=== PATIENT | female | born 1945 | race Caucasian/White ===

== ENCOUNTER 2019-03-09 15:36 | Emergency (ER) | payer MEDICARE ==
--- OUTSIDE RECORDS SUMMARY | 2019-03-09 15:41 | XMS REPORT | Continuity of Care Document ---
:1945 External Reference #:[id number] Author Name Cuong Bullock Care Team Providers Name Role Phone Breanne Rhoades RPA Primary Care Physician Unavailable Payers Date Identification Numbers Payment Provider Subscriber Policy Number: [id number] Medicare Blue Ppo Romelia Leger PayID: [id number] [address] [address] [place] [address] Problems Active Problems Provider Date Vulvodynia Breanne Wellington, PA Onset: 01/23/2019 Congenital anomaly of the kidney Breanne Rhoades, PA Onset: 01/23/2019 Note: partially duplicated collection system, right side Hyperlipidemia Breanne Wellington, PA Onset: 01/23/2019 Essential hypertension Breanne Rhoades, PA Onset: 01/23/2019 Atrial tachycardia Breanne Rhoades, PA Onset: 01/23/2019 Note: ablation, 1999 Paroxysmal atrial fibrillation Breanne Rhoades, PA Onset: 01/23/2019 Note: 2012, 2017...ablation Cervical arthritis Breanne Wellington, PA Onset: 01/23/2019 Note: mild Patellar tendonitis Breanne Carrasquilloing, PA Onset: 01/23/2019 Colitis Breanne Wellington, PA Onset: 01/23/2019 Note: Lymphocytic , bx 2017 Left bundle branch block Breanne Wellington, PA Onset: 02/03/2019 Note: intermittent, 2018 Family History Date Family Member(s) Observation Comments Father Heart Disease Mother Congestive Heart Failure (CHF) First Brother Thyroid CA Social History Type Date Description Comments Sex Unknown Marital Status Lives With Oscar Leger Diet Patient is on a low sodium Follows no dietary diet dietary restriction. Lives in [place] 6 months per year Occupation Retired ETOH Use Current Alcohol Use Socially Tobacco Use Start: Unknown Patient has never smoked Smoking Status Reviewed: 02/24/19 Patient has never smoked Allergies, Adverse Reactions, Alerts Active Allergies Reaction Severity Comments Date Zetia 01/23/2019 Rofecoxib 01/23/2019 Hydromorphone 01/23/2019 Monopril 01/23/2019 Cephalexin 01/23/2019 Nitrostat Passed out Severe 01/23/2019 Cipro avoid with Budesonides&Quinolo 01/23/2019 Medications Active Medications SIG Qnty Indications Ordering Date Provider Amlodipine Besylate 1 by mouth every 30tabs Jacinot 02/24/2019 2.5mg day MD Robles Tablets Vitamin B12 2500 mg twice a Jacinto 02/24/2019 week. MD Robles Hydroxyzine HCL 1-2 tabs by 60tabs G47.00 Jacinto 02/24/2019 25mg mouth at bedtime MD Robles Tablets as needed Spironolactone 1 by mouth every 30tabs I10 Jacinto 02/24/2019 25mg day MD Robles Tablets Vitamin D3 High 1 by mouth every 60caps Jacinto 01/23/2019 Potency day MD Robles 1000Unit Capsules Pravastatin Sodium take one tablet 30tabs Jacinto 01/23/2019 40mg by mouth every MD Robles Tablets evening Estradiol 0.5gram 42.500gm Jacinto 01/23/2019 0.1mg/GM Cream vaginally MD Robles 2x/week Multi Vitamin 1 by mouth every 30tabs Jacinto 01/23/2019 Tablets day MD Robles Buspirone HCL 1 by mouth three Jacinto 01/23/2019 5mg Tablets times a day/prn MD Robles Metoprolol Succinate 1 by mouth every 90tabs Jacinto 01/23/2019 ER night MD Robles 100mg Tablets ER 24HR Omeprazole 1 by mouth every 30caps Jacinto 01/23/2019 20mg Capsules day MD Robles DR Furosemide 1 by mouth every 30tabs Jacinto 01/23/2019 20mg Tablets day as needed MD Robles Eliquis 1 tab by mouth Unknown 08/22/2018 2.5mg Tablets twice a day Integra F 1 cap by mouth Unknown 125-1mg every day Capsules History Medications Eliquis 1 by mouth 60tabs Jacinto Arboleda MD 01/23/2019 - 5mg Tablets twice a day 01/24/2019 Vitamin B12 1 by mouth 90tabs Jacinto Arboleda MD 01/23/2019 - 100mcg every day 02/24/2019 Tablets Ferritin 65mg 1 tab qd Jacinto Arboleda MD 01/23/2019 - 01/24/2019 Amlodipine Besylate 1 by mouth Unknown 08/22/2018 - every Am 02/24/2019 5mg Tablets Immunizations CPT Code Status Date Vaccine Lot # [id number] Given 06/03/2018 Influenza Virus Vaccine, Quadrivalent, Split, Preservative Free 99190 Given 06/14/2015 Pneumococcal Conjugate Vaccine 13 Valent For Intramuscular Use 05550 Given 07/21/2012 Zoster(Zostavax) 62879 Given 07/13/2008 Pneumonia Vaccine 57862 Given 06/28/2001 Pneumonia Vaccine Vital Signs Date Vital Result Comment 02/24/2019 9:17am Height 68.25 inches 5'8.25" Weight 219.38 lb Heart Rate 62 /min BP Systolic Sitting 140 mmHg BP Diastolic Sitting 76 mmHg O2 % BldC Oximetry 97 % BMI (Body Mass Index) 33.1 kg/m2 01/23/2019 2:47pm Height 68.25 inches 5'8.25" Weight 215.44 lb Heart Rate 84 /min BP Systolic Sitting 136 mmHg BP Diastolic Sitting 72 mmHg O2 % BldC Oximetry 94 % BMI (Body Mass Index) 32.5 kg/m2 Results Test Date Facility Test Result H/L Range Note CBC Auto Diff 02/17/2019 [facility] White Blood 7.4 10^3/uL N 3.5-10.[address] [place] [address] [phone] Red Blood Count 3.94 10^6/uL N 3.70-4.87 Hemoglobin 11.7 g/dL Low 12.0-16.0 Hematocrit 36 % N 35-47 Mean Corpuscular Volume 91 fL N 80-97 Mean Corpuscular Hemoglobin 30 pg N 27-31 Mean Corpuscular HGB Conc 33 g/dL N 31-36 Red Cell Distribution Width 15 % N 10-15 Platelet Count 248 10^3/uL N 150-450 Mean Platelet Volume 10.4 fL N 7.4-10.4 Abs Neutrophils 5.0 10^3/uL N 1.5-7.7 Abs Lymphocytes 1.8 10^3/uL N 1.0-4.8 Abs Monocytes 0.5 10^3/uL N 0-0.8 Abs Eosinophils 0.1 10^3/uL N 0-0.6 Abs Basophils 0.0 10^3/uL N 0-0.2 Abs Nucleated RBC 0.0 10^3/uL Granulocyte % 67.5 % Lymphocyte % 23.9 % Monocyte % 7.1 % Eosinophil % 1.3 % Basophil % 0.2 % Nucleated Red Blood Cells % 0.0 Iron & Iron Binding 02/17/2019 [facility] Iron 62 g/dL N 50- 212 [address] [place] [address] [phone] Unsaturated Iron Binding < 304 g/dL Total Iron Binding Capacity 319 g/dL N 250-450 Transferrin 228 mg/dL N 203-362 % Iron Saturation 19 % N 15-55 Laboratory test 02/17/2019 [facility] Ferritin 191.5 ng/mL N 11-307 finding [address] [place] [address] [phone] Renal Function 02/17/2019 [facility] Albumin 4.0 g/dL N 3.2- 5.2 Panel [address] [place] [address] [phone] Calcium 9.4 mg/dL N 8.6-10.3 Co2 Carbon Dioxide 20 mmol/L Low 22-32 Chloride 115 mmol/L High 101-111 Glucose 100 mg/dL N 70-100 Phosphorus 3.6 mg/dL N 2.5-5.0 Potassium 4.4 mmol/L N 3.5-5.0 Sodium 142 mmol/L N 135-145 Blood Urea Nitrogen BUN 26 mg/dL High 6-24 Creatinine 02/17/2019 [facility] Creatinine 1.07 mg/dL High 0.51-0.[address] [place] [address] [phone] Egfr Non- 50.6 >60 Egfr 61.2 >60 1 Urinalysis Profile 02/13/2019 [facility] Urine Color Yellow 2 [address] [place] [address] [phone] Urine Appearance Clear Urine Specific [place] 1.006 Low 1.010-1.030 Urine pH 6.0 N 5-9 Urine Urobilinogen Negative Negative Urine Ketones Negative Negative Urine Protein Negative Negative Urine Leukocytes Negative Negative Urine Blood Negative Negative Urine Nitrite Negative Negative Urine Bilirubin Negative Negative Urine Glucose Negative Negative Urine Culture And 02/13/2019 [facility] Urine Culture SEE RESULT [address] [place] [address] [phone] Comp Metabolic 01/21/2019 [facility] Sodium 143 mmol/L N 135- [address] [place] [address] [phone] Potassium 3.9 mmol/L N 3.5-5.0 Co2 Carbon Dioxide 19 mmol/L Low 22-32 Glucose 94 mg/dL N 70-100 Blood Urea Nitrogen 25 mg/dL High 6-24 Creatinine 1.19 mg/dL High 0.51-0.95 BUN/Creatinine Ratio 21.0 High 8-20 Calcium 9.8 mg/dL N 8.6-10.3 Total Protein 6.7 g/dL N 6.4-8.9 Albumin 4.3 g/dL N 3.2-5.2 Globulin 2.4 g/dL N 2-4 Albumin/Globulin Ratio 1.8 N 1-3 Total Bilirubin 0.50 mg/dL N 0.2-1.0 Alkaline Phosphatase 57 U/L N 34-104 Alt 16 U/L N 7-52 Ast 17 U/L N 13-39 Egfr Non- 44.7 >60 Egfr 54.1 >60 4 Chloride 116 mmol/L High 101-111 Anion Gap 8 mmol/L N 2-11 Lipid Profile 01/21/2019 [facility] Triglycerides 175 mg/dL 5 (Trig/Chol/HDL) [address] [place] [address] [phone] Cholesterol 162 mg/dL 6 HDL Cholesterol 52.6 mg/dL 7 LDL Cholesterol 74 mg/dL 8 CBC Auto Diff 01/21/2019 [facility] White Blood 7.1 10^3/uL N 3.5-10.[address] [place] [address] [phone] Red Blood Count 3.85 10^6/uL N 3.70-4.87 Hemoglobin 11.3 g/dL Low 12.0-16.0 Hematocrit 35 % N 35-47 Mean Corpuscular Volume 90 fL N 80-97 Mean Corpuscular Hemoglobin 30 pg N 27-31 Mean Corpuscular HGB Conc 33 g/dL N 31-36 Red Cell Distribution Width 15 % N 10.5-15 Platelet Count 293 10^3/uL N 150-450 Mean Platelet Volume 9.8 fL N 7.4-10.4 Abs Neutrophils 4.0 10^3/uL N 1.5-7.7 Abs Lymphocytes 2.4 10^3/uL N 1.0-4.8 Abs Monocytes 0.6 10^3/uL N 0-0.8 Abs Eosinophils 0.1 10^3/uL N 0-0.6 Abs Basophils 0.0 10^3/uL N 0-0.2 Abs Nucleated RBC 0.0 10^3/uL Granulocyte % 55.8 % Lymphocyte % 34.3 % Monocyte % 7.8 % Eosinophil % 1.8 % Basophil % 0.3 % Nucleated Red Blood Cells % 0.0 Laboratory test 01/21/2019 [facility] Vitamin D 41.6 ng/mL N 20-[address]) [place] [address] [phone] 1 Because ethnic data is not always readily available, this report includes an eGFR for both -Americans and non- Americans. The National Kidney Disease Education Program (NKDEP) does not endorse the use of the MDRD equation for patients that are not between the ages of 18 and 70, are , have extremes of body size, muscle mass, or nutritional status, or are non- or non-. According to the National Kidney Foundation, irrespective of diagnosis, the stage of the disease is based on the level of kidney function: Stage Description GFR(mL/min/1.73 m(2)) 1 Kidney damage with normal or decreased GFR 90 2 Kidney damage with mild decrease in GFR 60-89 3 Moderate decrease in GFR 30-59 4 Severe decrease in GFR 15-29 5 Kidney failure <15 (or dialysis) 2 [id number] 3 SEE RESULT BELOW Name: ROMELIA LEGER : [address]: Breanne MCCURDY Acct: [id number] Unit: [id number] AGE: 73 Location: [facility] Re02/13/19 SEX: F Status: REG REF SPEC: [id number] LUIS ALBERTO: 02/13/19-[address]: Breanne MCCURDY REQ: [id number] RECD: 02/13/19 STATUS: COMP _ SOURCE: URINE SPDESC: ORDERED: Urine Culture COMMENTS: [id number] Urine Source: Random Procedure Result Reported Site Urine Culture Final 02/14/19- 1647 ML No Growth (<1,000 CFU/mL) * ML - Main Lab . END OF REPORT DEPARTMENT OF PATHOLOGY, [address] [place] [address] Surjit Quigley M.D. Director [facility] # [id number] 4 Because ethnic data is not always readily available, this report includes an eGFR for both -Americans and non- Americans. The National Kidney Disease Education Program (NKDEP) does not endorse the use of the MDRD equation for patients that are not between the ages of 18 and 70, are , have extremes of body size, muscle mass, or nutritional status, or are non- or non-. According to the National Kidney Foundation, irrespective of diagnosis, the stage of the disease is based on the level of kidney function: Stage Description GFR(mL/min/1.73 m(2)) 1 Kidney damage with normal or decreased GFR 90 2 Kidney damage with mild decrease in GFR 60-89 3 Moderate decrease in GFR 30-59 4 Severe decrease in GFR 15-29 5 Kidney failure <15 (or dialysis) 5 Desirable: <150 Borderline High: 150-199 High: 200-499 Very High: >500 6 Desirable: <200 Borderline High: 200-239 High: >239 7 Low: <40 Desirable: 40-60 High: >60 8 Desirable: <100 Near Optimal: 100-129 Borderline High: 130-159 High: 160-189 Very High: >189 9 Total 25-Hydroxyvitamin D2 and D3 (25-OH-VitD) <10 ng/mL (severe deficiency) 10-19 ng/mL (mild to moderate deficiency) 20-50 ng/mL (optimum levels) 51-80 ng/mL (increased risk of hypercalciuria) >80 ng/mL (toxicity possible) Procedures Date Code Description Status 04/26/2018 [id number] Mammogram Completed 05/04/2017 [id number] Colonoscopy Completed 05/24/2013 16405 Treadmill Interp/Report Only Completed 05/24/2013 20536 Stress Test Supervsn W/Out I/R Completed 05/24/2013 19544 EKG, Interpretation Only Completed Encounters Type Date Location Provider Dx Diagnosis Office Visit 01/23/2019 [facility] Primary [facility] Breanne Rhoades, D50.9 Iron deficiency 2:30p KAZ anemia, unspecified N17.9 Acute kidney failure, unspecified I49.9 Cardiac arrhythmia, unspecified 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 Un[facility] Hospitalists 427.31 Atrial Fibrillation 272.2 Hyperlipidemia Mixed 785.1 Palpitations Office 05/24/2013 [place] Mariela S. 794.31 Electrocardiogram Visit 9:43a Cardiology Tamia Trinh (ECG) (EKG) Abnormal 786.50 Pain Chest Unspec 427.31 Atrial Fibrillation 401.1 Hypertension Benign Office Visit 05/24/2013 9:35a [facility] Mone 786.50 [facility],hugo Claros M.D. Unspec Hospitalists 785.1 Palpitations Plan of Treatment Future Appointment(s):05/27/2019 11:30 am - KAZ Saeed at [facility] Primary Care02/24/2019 - MARTY Saeed Essential (primary) hypertensionNew Medication:Spironolactone 25 mg - 1 by mouth every dayComments:Current medication(s): Amlodipine 2,5mg daily, Metoprolol ER 100mg daily Add...Follow up:05/20199159E04.0 Localized edemaNew Labs:Renal Function Panel, Ordered: CBC No Diff, Ordered: 02/24/19Comments:Current treatment: Furosemide 20mg as neededMay switch to as needed use as edema subsides with farrmyokdbradbW96.00 Insomnia, unspecifiedNew Medication:Hydroxyzine HCL 25 mg - 1-2 tabs by mouth at bedtime as needed
--- OUTSIDE RECORDS SUMMARY | 2019-03-09 15:42 | XMS REPORT | Continuity of Care Document ---
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 Breanne Rhoades RPAC Primary Care Physician Unavailable Payers Date Identification Numbers Payment Provider Subscriber Effective: 2017 Policy Number: [id number] [employer] Romelia Magdaleno PayID: [id number] [address] [address] [place] [address] Problems Active Problems Provider Date Atrophic vaginitis Breanne Rhoades RPAC Onset: 12/28/2011 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, (R) side Hyperlipidemia Breanne Rhoades RPAC Onset: 12/28/2011 Benign essential hypertension [facility]: 12/28/2011 Irritable bowel syndrome [facility] Onset: 12/28/2011 Atrial tachycardia [facility] Onset: 05/13/2015 Note: ablation 2000 Paroxysmal atrial fibrillation Breanne Rhoades RPAC Onset: 05/13/2015 Note: 2012,2017 Cervical arthritis [facility] Onset: 05/13/2015 Note: mild Colitis [facility] Onset: 05/25/2017 Note: lymphocytic, bx 2017 Urinary tract infectious disease [facility] Onset: 02/11/2018 Knee pain [facility] Onset: 02/11/2018 Patellar tendonitis Jonh Hernandez M.D. Onset: 03/14/2018 Resolved Problems Acute upper respiratory infection, Breanne Rhoades RPAC Onset: 01/15/2018 unspecified Resolved: 02/13/2018 Ulcerative stomatitis Breanne Rhoades RPAC Onset: 01/22/2018 Resolved: 02/13/2018 Family History Date Family Member(s) Observation Comments General Heart Attack Father Heart Disease Father due to [place] () Mother Heart Disease First Brother Heart Disease First Brother Cancer thyroid Second Brother Pancreatic Cancer Social History Type Date Description Comments Sex Unknown Lives With Oscar Magdaleno Diet Patient is on a low sodium diet Diet Patient follows no dietary restrictions Occupation Retired Work Status Retired Hand Dominance Right-handed Tobacco Use Start: Unknown Never Smoked Cigarettes ETOH Use Currently consumes alcohol socially Tobacco Use Start: Unknown End: Patient is a former smoker Recreational Drug Use Never Used Drugs Smoking Status Reviewed: 02/11/19 Patient is a former smoker Allergies, Adverse Reactions, Alerts Active Allergies Reaction Severity Comments Date Hydromorphone 05/24/2011 Amiodarone 04/11/2018 Zetia Diarrhea 05/24/2011 Cephalexin Vomiting 05/24/2011 Nitroglycerin Other (See Comments) 03/26/2018 Vioxx 05/24/2011 Monopril 05/24/2011 Ezetimibe Diarrhea 03/26/2018 Nitrostat HYPOTENSION Passed Out 05/05/2016 Cipro diarrhea Avoid With Budesonide 05/09/2018 Quinolones AVOID WITH BUDESONIDE 06/02/2018 Xarelto Robin 02/11/2019 Medications Active Medications SIG Qnty Indications Ordering Date Provider Integra F one daily Ajit Pedroza MD 02/11/2019 125-1mg Capsules Omeprazole Take 1 Capsule By 90caps Jona Hylton, 08/01/2018 20mg Mouth Every Day M.D. Capsules DR Furosemide 1 by mouth every day 90tabs R60.0 Jona Hylton, 06/03/2018 20mg as needed for M.D. Tablets foot/ankle swelling Buspirone HCL 1 tab by mouth twice 360tabs F41.9 Jona Hylton, 2014 5mg a day for anxiety as M.D. Tablets needed Multi-Day Vitamins 1 by mouth every day 300tabs Jona Hylton, 2012 M.DChristian Tablets Estrace insert 1 255mg Jona Hylton, 03/11/2012 0.1mg/GM applicatorful M.D. Cream vaginally twice a week Pravastatin Sodium Take 1 Tablet By 90tabs Jona Hylton, 03/11/2012 Mouth Every Day M.D. 40mg Tablets Vitamin D3 one cap q day Unknown 1000Unit Capsules Eliquis 1 tab by mouth twice Unknown 2.5mg daily Tablets Metoprolol 1 by mouth every day I49.3 Unknown Succinate ER 100mg Tablets ER 24HR Vitamin B-12 twice weekly Unknown 2500mcg Tablets Sub Amlodipine Besylate 1 by mouth every day Unknown 2.5mg Tablets History Medications Shingrix intramuscular dose, 1units Warner, 06/03/2018 - 50mcg Suspension Rec repeat in 2+ months Tamia Tenorio Unknown Ciprofloxacin HCL 1 tab by mouth 20tabs Warner, 05/07/2018 - 500mg Tablets twice a day Tamia Tenorio 05/18/2018 Omeprazole 1 by mouth every 90caps Warner, 04/11/2018 - 40mg Capsules DR lewis Tenorio M.D. 08/01/2018 Tramadol HCL 1 tablet every 4 30tabs Jonh Hernandez, 02/21/2018 - 50mg Tablets hours as needed for M.D. 04/22/2018 pain Amoxicillin 1 cap by mouth 30caps N39.0 Warner, 02/11/2018 - 500mg Capsules three times a day Tamia Tenorio 04/09/2018 Xarelto 1 tab by mouth at [facility], 01/16/2018 - 20mg Tablets largest meal. MD Bird Unknown Ipratropium [place] 2 sprays to each 30ml J06.9 Warner, 01/15/2018 - 0.03% nostril twice a day Tamia Tenorio 04/22/2018 Solution Amoxicillin 1 tab by mouth 20tabs J06.9 Hylton, 01/15/2018 - 875mg Tablets twice a day Tamia Tenorio 01/26/2018 Budesonide 3 caps every day, [place], 06/03/2017 - 3mg Caps DR Omar cintron as directed Rajesh JAY 01/15/2018 Sulfamethoxazole/Trimetho take one tablet by 20tabs Warner, 05/23/2017 - prim DS mouth twice a day Tamia Tenorio 06/07/2017 800-160mg Tablets with food Nitrofurantoin Monohyd 1 cap by mouth 14caps Warner, 05/10/2017 - Macro twice a day Tamia Tenorio Unknown 100mg Capsules Amoxicillin 1 cap by mouth 30caps Warner, 04/17/2017 - 500mg Capsules three times a day Tamia Tenorio 04/28/2017 Terbinafine HCL Take One Tablet By [place], 03/19/2017 - 250mg Tablets Mouth Every Day Alayna Raymundo RPAC Lamisil 1 tab by mouth 90tabs B35.1 Warner, 02/14/2017 - 250mg Tablets every day Tamia Tenorio Unknown Metoprolol Succinate ER 1 by mouth every 90tabs I49.3 Ajit Pedroza, 2016 - 25mg night 02/11/2019 Tablets ER 24HR Magnesium Oxide -MG one by mouth daily 30caps I49.3 Isaac, 02/13/2017 - Supplement Ernie Muse, Unknown 400mg Capsules [facility], [facility] Metoprolol Tartrate 1/2 tab by mouth 180tabs I49.3 Ajit Pedroza, 2016 - 25mg twice daily 02/13/2017 Tablets Multaq take one tablet by Page, 06/26/2016 - 400mg Tablets mouth twice a day MD Bird 06/12/2018 Eliquis 1 tab by mouth 180tabs Isaac, 05/30/2016 - 5mg Tablets twice a day Ernie Muse, 07/03/2016 Tamia, [facility] Omeprazole take 1 capsule by 90caps Warner, 05/12/2016 - 20mg Capsules DR lisa every day Tamia Tenorio 04/15/2018 Aspirin Ec Lo-Dose 1 by mouth every Ajit Pedroza, 05/05/2016 - 81mg Tablets day 05/30/2016 DR Chase 1 by mouth every 90tabs Ajit Pedroza, 05/05/2016 - 10mg Tablets day 07/03/2016 Esomeprazole Magnesium 1 by mouth twice a 90caps Garth Dalal 04/21/2016 - 40mg day E., DO 05/12/2016 Capsules Carsohailol 1 by mouth twice a 60tabs Garth Dalal 04/21/2016 - 12.5mg Tablets day E., DO 05/05/2016 Bactrim DS 1 tab by mouth Pepe, 04/17/2016 - 800-160mg Tablets twice a day Lj Garcia MD Unknown Fenofibrate Micronized 1 cap by mouth 30caps Garth Dalal 06/14/2015 - 130mg every day E., DO 04/21/2016 Capsules Amlodipine Besylate 1 by mouth every 90tabs Garth Dalal 05/27/2015 - 2.5mg day E., DO 04/21/2016 Tablets Hydrochlorothiazide 1 cap by mouth 90caps Garth Dalal 05/27/2015 - 12.5mg every day as needed E., DO 04/21/2016 Capsules lower ext edema Fenofibrate Micronized 1 cap by mouth 90caps Jose, 04/01/2014 - 134mg every day MD Nelly 06/14/2015 Capsules [place] 50 1 by mouth every 60caps Jose, 03/23/2014 - 1000mg Capsules day MD Nelly 02/22/2015 Ferrous Gluconate 1 by mouth every Jose, 03/23/2014 - 325(36Fe) mg day MD Nelly 02/22/2015 Tablets Ciprofloxacin HCL 1 by mouth twice a 14tabs Jose, 03/23/2014 - 500mg Tablets day MD Nelly 02/22/2015 Bisoprolol 1 tab by mouth 90tabs Jose, 09/10/2013 - Fumarate/Hydrochlorothiaz every day...05/18/15 MD Nelly 05/27/2015 pb taper with 1/2 tab 10-6.25mg Tablets q day for 5 days then stop Omeprazole 1 cap by mouth 90capnimo Garcia, 06/12/2013 - 40mg Capsules DR every day MD Nelly 04/21/2016 Aspirin Adult Low 2 tabs by mouth Jose 03/11/2012 - Strength every day MD Nelly 05/05/2016 81mg Tablets Furosemide 1 po qd prn, rare 90tabs Jose, 05/24/2011 - 20mg Tablets use MD Nelly 06/14/2015 Fenofibrate Micronized Take 1 Capsule By 90caps Warner, - 134mg Mouth Every Day Tamia Tenorio Unknown Capsules Budesonide 1 cap by mouth Rodger, - 3mg Caps Part every day Rajesh JAY Unknown Hydrochlorothiazide 1/2 - 1 tablet by 90tabs Warner, - 25mg mouth every day prn Tamia Tenorio 06/03/2018 Tablets Aspirin Adult Low Dose 2 by mouth every Unknown - 81mg day 01/22/2018 Tablets Vitamin B12 1 by mouth every Unknown - 500mg Tablets day Unknown Hydrochlorothiazide 1 by mouth every 90tabs Warner, - 12.5mg day Tamia Tenorio 01/15/2018 Tablets Cefuroxime Axetil Unknown - 250mg Tablets 05/13/2015 [place] 50 1 by mouth every 60caps Jose, - 1000mg Capsules day MD Nelly 05/13/2015 Ferrous Gluconate 1 by mouth every Jose, - 325(36Fe) mg day MD Nelly 05/13/2015 Tablets Ciprofloxacin HCL 1 by mouth twice a 14tabs Jose, - 500mg Tablets day MD Nelly 05/13/2015 Estrace Unknown - 0.1mg/GM Cream 05/13/2015 Nyamyc Unknown - [id number] Powder 05/13/2015 Sulfamethoxazole-Trimetho Unknown - prim 05/13/2015 400-80mg Tablets Cephalexin Unknown - 500mg Capsules 05/13/2015 Ciprofloxacin HCL Unknown - 500mg Tablets 05/13/2015 Bisoprolol Unknown - Fumarate/Hydrochlorothiaz 05/13/2015 pb 10-6.25mg Tablets Nitrofurantoin Monohyd Unknown - Macro 05/13/2015 100mg Capsules Fenofibrate Micronized Unknown - 134mg 05/13/2015 Capsules Osphena 1 tablet by mouth Unknown - 60mg Tablets once a day with 04/21/2016 food Medications Administered in Office Medication SIG Qnty Indications Ordering Provider Date Methylprednisolone acetate Dorothy Fraser, 02/13/2018 (Depomedrol) 80mg injection RPAC Injection Betamethasone Acetate & Sodium Dorothy Fraser, 03/27/2017 Phosphate 3 MG Of Each RPAC Injection Depo-Medrol 20mg Dorothy Fraser, 02/23/2015 Injection RPA Immunizations CPT Code Status Date Vaccine Reaction Lot # 42899 Given 06/03/2018 Influenza Virus Vaccine, Quadrivalent, 36 none [id number] Mos+, .5ML 38846 Given 05/21/2017 Influenza Virus Vaccine Quadrivalent Iiv4 NONE [id number] Split Preser Free Id Q2038 Given 05/29/2016 Influenza Vaccine (Fluzone) Age 3 And [id number] Older Q2038 Given 06/14/2015 Influenza Vaccine (Fluzone) Age 3 And [id number] Older 96497 Given 06/14/2015 Pneumococcal Conjugate Vaccine 13 Valent [id number] For Intramuscular Use 01190 Given 05/29/2014 flu vaccination 48315 Given 06/23/2013 flu vaccination 53813 Given 07/11/2012 Zoster Vaccine Live Injection 99116 Given 07/03/2012 Tdap injection 93932 Given 05/31/2012 flu vaccination 03463 Given 05/24/2011 flu vaccination 53472 Given 05/13/2010 flu vaccination 33418 Given 07/13/2008 Pneumovax Injection 70579 Given 06/28/2001 Pneumovax Injection 26274 Given 06/28/2001 flu vaccination Vital Signs Date Vital Result Comment 02/11/2019 9:17am BP Systolic Sitting Left Arm 120 mmHg BP Diastolic Sitting Left Arm 60 mmHg Heart Rate 70 /min Respiratory Rate 18 /min Height 67.99 inches 5'7.99" per records Weight 212.00 lb BMI (Body Mass Index) 32.2 kg/m2 BSA (Body Surface Area) 2.09 m2 [place] body weight in kilograms 63 kg O2 % BldC Oximetry 97 % 06/03/2018 12:53pm BP Systolic 144 mmHg BP Diastolic 76 mmHg Body Temperature 97.3 F Heart Rate 81 /min Respiratory Rate 18 /min Height 67.99 inches 5'7.99" per records Weight 227.25 lb BMI (Body Mass Index) 34.6 kg/m2 BSA (Body Surface Area) 2.16 m2 [place] body weight in kilograms 63 kg O2 % BldC Oximetry 98 % 05/14/2018 11:47am BP Systolic Sitting Left Arm 120 mmHg BP Diastolic Sitting Left Arm 65 mmHg Heart Rate 72 /min Respiratory Rate 16 /min Height 67.99 inches 5'7.99" per records Weight 226.00 lb BMI (Body Mass Index) 34.4 kg/m2 BSA (Body Surface Area) 2.15 m2 [place] body weight in kilograms 63 kg O2 % BldC Oximetry 98 % 04/22/2018 10:59am BP Systolic Sitting Left Arm 120 mmHg BP Diastolic Sitting Left Arm 62 mmHg Body Temperature 98.4 F Heart Rate 69 /min Respiratory Rate 18 /min Height 67.99 inches 5'7.99" per records Weight 227.00 lb BMI (Body Mass Index) 34.5 kg/m2 BSA (Body Surface Area) 2.16 m2 [place] body weight in kilograms 63 kg O2 % BldC Oximetry 98 % Ra 03/14/2018 1:02pm BP Systolic Sitting Left Arm 133 mmHg BP Diastolic Sitting Left Arm 78 mmHg Body Temperature 97.4 F Heart Rate 69 /min Respiratory Rate 18 /min Height 67.99 inches 5'7.99" per records Weight 228.00 lb BMI (Body Mass Index) 34.7 kg/m2 BSA (Body Surface Area) 2.16 m2 [place] body weight in kilograms 63 kg O2 % BldC Oximetry 98 % 02/21/2018 2:18pm BP Systolic Sitting Left Arm 132 mmHg BP Diastolic Sitting Left Arm 65 mmHg Body Temperature 98.5 F Heart Rate 71 /min Respiratory Rate 17 /min Height 67.99 inches 5'7.99" per records [place] body weight in kilograms 63 kg O2 % BldC Oximetry 99 % 02/13/2018 1:15pm BP Systolic Sitting Left Arm 117 mmHg BP Diastolic Sitting Left Arm 75 mmHg Body Temperature 98.0 F Heart Rate 62 /min Respiratory Rate 18 /min Height 67.99 inches 5'7.99" per records Weight 232.00 lb BMI (Body Mass Index) 35.3 kg/m2 BSA (Body Surface Area) 2.18 m2 [place] body weight in kilograms 63 kg O2 % BldC Oximetry 98 % 02/11/2018 2:35pm BP Systolic Sitting Right Arm 128 mmHg BP Diastolic Sitting Right Arm 68 mmHg Body Temperature 98.7 F Heart Rate 65 /min ra Respiratory Rate 18 /min Height 67.99 inches 5'7.99" Weight 232.00 lb BMI (Body Mass Index) 35.3 kg/m2 BSA (Body Surface Area) 2.18 m2 [place] body weight in kilograms 63 kg O2 % BldC Oximetry 98 % ra 02/06/2018 10:32am BP Systolic 112 mmHg BP Diastolic 64 mmHg Heart Rate 76 /min Height 67.99 inches 5'7.99" Weight 224.00 lb BMI (Body Mass Index) 34.06 kg/m2 02/04/2018 9:19am BP Systolic Sitting Left Arm 138 mmHg BP Diastolic Sitting Left Arm 78 mmHg Heart Rate 62 /min Respiratory Rate 18 /min Height 69 inches 5'9" Weight 230.00 lb BMI (Body Mass Index) 34.0 kg/m2 BSA (Body Surface Area) 2.19 m2 [place] body weight in kilograms 66 kg 01/22/2018 10:07am BP Systolic Sitting Right Arm 118 mmHg BP Diastolic Sitting Right Arm 72 mmHg Heart Rate 73 /min reg Respiratory Rate 24 /min Height 69 inches 5'9" Weight 228.00 lb BMI (Body Mass Index) 33.7 kg/m2 BSA (Body Surface Area) 2.18 m2 [place] body weight in kilograms 66 kg O2 % BldC Oximetry 98 % ra 01/15/2018 10:08am BP Systolic Sitting Right Arm 140 mmHg BP Diastolic Sitting Right Arm 72 mmHg Body Temperature 99.5 F Heart Rate 71 /min reg Respiratory Rate 24 /min Height 69 inches 5'9" Weight 228.00 lb BMI (Body Mass Index) 33.7 kg/m2 BSA (Body Surface Area) 2.18 m2 [place] body weight in kilograms 66 kg O2 % BldC Oximetry 97 % 05/23/2017 9:44am BP Systolic Sitting Left Arm 104 mmHg BP Diastolic Sitting Left Arm 77 mmHg Heart Rate 56 /min Respiratory Rate 16 /min Height 69 inches 5'9" Weight 222.00 lb BMI (Body Mass Index) 32.8 kg/m2 BSA (Body Surface Area) 2.16 m2 [place] body weight in kilograms 66 kg 05/21/2017 8:57am BP Systolic Sitting Right Arm 118 mmHg BP Diastolic Sitting Right Arm 72 mmHg Heart Rate 61 /min Height 69 inches 5'9" Weight 223.00 lb BMI (Body Mass Index) 32.9 kg/m2 BSA (Body Surface Area) 2.16 m2 [place] body weight in kilograms 66 kg O2 % BldC Oximetry 98 % ra 03/27/2017 9:15am BP Systolic Sitting Right Arm 128 mmHg BP Diastolic Sitting Right Arm 80 mmHg Height 69 inches 5'9" Weight 226.00 lb BMI (Body Mass Index) 33.4 kg/m2 BSA (Body Surface Area) 2.18 m2 [place] body weight in kilograms 66 kg 02/14/2017 9:25am BP Systolic Sitting Right Arm 122 mmHg BP Diastolic Sitting Right Arm 72 mmHg Heart Rate 68 /min Height 69 inches 5'9" Weight 224.25 lb BMI (Body Mass Index) 33.1 kg/m2 BSA (Body Surface Area) 2.17 m2 [place] body weight in kilograms 66 kg O2 % BldC Oximetry 97 % 02/13/2017 8:52am BP Systolic Sitting Right Arm 124 mmHg BP Diastolic Sitting Right Arm 76 mmHg Heart Rate 64 /min Respiratory Rate 14 /min Height 69 inches 5'9" Weight 224.00 lb BMI (Body Mass Index) 33.1 kg/m2 BSA (Body Surface Area) 2.17 m2 [place] body weight in kilograms 66 kg 07/31/2016 11:39am BP Systolic Sitting Right Arm 140 mmHg BP Diastolic Sitting Right Arm 72 mmHg Heart Rate 65 /min Respiratory Rate 16 /min Height 69 inches 5'9" Weight 224.00 lb BMI (Body Mass Index) 33.1 kg/m2 BSA (Body Surface Area) 2.17 m2 07/06/2016 1:06pm BP Systolic Sitting Left Arm 140 mmHg BP Diastolic Sitting Left Arm 72 mmHg Heart Rate 65 /min Height 69 inches 5'9" Weight 221.00 lb BMI (Body Mass Index) 32.6 kg/m2 BSA (Body Surface Area) 2.16 m2 07/03/2016 11:21am BP Systolic Sitting Right Arm 136 mmHg BP Diastolic Sitting Right Arm 76 mmHg Heart Rate 66 /min Height 69 inches 5'9" Weight 212.38 lb BMI (Body Mass Index) 31.4 kg/m2 BSA (Body Surface Area) 2.12 m2 O2 % BldC Oximetry 98 % 05/30/2016 11:08am BP Systolic Sitting Left Arm 144 mmHg BP Diastolic Sitting Left Arm 76 mmHg Heart Rate 66 /min Respiratory Rate 16 /min Height 69 inches 5'9" Weight 218.00 lb BMI (Body Mass Index) 32.2 kg/m2 BSA (Body Surface Area) 2.14 m2 05/05/2016 9:58am BP Systolic Sitting Right Arm 144 mmHg BP Diastolic Sitting Right Arm 88 mmHg Heart Rate 81 /min Respiratory Rate 16 /min Height 69 inches 5'9" Weight 219.00 lb BMI (Body Mass Index) 32.3 kg/m2 BSA (Body Surface Area) 2.15 m2 04/21/2016 8:46am BP Systolic Sitting Right Arm 130 mmHg BP Diastolic Sitting Right Arm 70 mmHg Heart Rate 78 /min Height 69 inches 5'9" Weight 216.12 lb BMI (Body Mass Index) 31.9 kg/m2 BSA (Body Surface Area) 2.14 m2 O2 % BldC Oximetry 99 % 06/14/2015 10:41am BP Systolic 134 mmHg BP Diastolic 76 mmHg Height 69 inches 5'9" Weight 212.00 lb BMI (Body Mass Index) 31.3 kg/m2 BSA (Body Surface Area) 2.12 m2 05/20/2015 10:56am BP Systolic 138 mmHg BP Diastolic 62 mmHg Heart Rate 64 /min Height 69 inches 5'9" Weight 216.00 lb BMI (Body Mass Index) 31.9 kg/m2 BSA (Body Surface Area) 2.13 m2 O2 % BldC Oximetry 97 % 05/13/2015 11:02am BP Systolic 134 mmHg BP Diastolic 74 mmHg Height 69 inches 5'9" Weight 215.00 lb BMI (Body Mass Index) 31.7 kg/m2 BSA (Body Surface Area) 2.13 m2 02/23/2015 11:07am BP Systolic Sitting Left Arm 120 mmHg BP Diastolic Sitting Left Arm 120 mmHg Height 69 inches 5'9" Weight 215.00 lb BMI (Body Mass Index) 31.7 kg/m2 BSA (Body Surface Area) 2.13 m2 03/23/2014 9:57am BP Systolic 138 mmHg BP Diastolic 70 mmHg Height 69 inches 5'9" Weight 229.00 lb 06/12/2013 11:12am BP Systolic 126 mmHg BP Diastolic 72 mmHg Heart Rate 61 /min Height 69 inches 5'9" Weight 228.00 lb 06/05/2013 11:14am BP Systolic 132 mmHg BP Diastolic 80 mmHg Height 69 inches 5'9" Weight 228.00 lb 05/29/2013 11:07am BP Systolic 134 mmHg BP Diastolic 68 mmHg Heart Rate 64 /min Height 69 inches 5'9" Weight 229.00 lb 04/30/2013 11:04am BP Systolic 132 mmHg BP Diastolic 76 mmHg Height 69 inches 5'9" Weight 229.00 lb 03/11/2012 10:49am BP Systolic 134 mmHg Height 69 inches 5'9" Weight 222.00 lb 05/24/2011 11:20am BP Systolic 142 mmHg BP Diastolic 72 mmHg Height 69 inches 5'9" Weight 226.00 lb Results Test Date Facility Test Result H/L Range Note Urine Dipstick 06/03/2018 [facility] Ua Color Yellow Yellow Ua Clarity Clear Clear Ua Leuko Negative Negative Ua Nitrite Negative Negative Ua Urobilinogen 3.5 High 0.2 - 1.0 E.U./dL Ua Protein negative Negative Ua PH 6.0 Low 6.5-7.5 Ua Blood Negative Negative Ua Specific [place] 1.015 1.010-1.030 Ua Ketones Negative Negative Ua Bilirubin Negative Negative Ua Glucose Negative Negative Urinalysis With 05/07/2018 [facility] Urine Color YELLOW Yellow 1 Microscopic [address] [place] [place] [address] [phone] Urine Clarity SL CLOUDY Clear Urine Glucose - Dipstick NEGATIVE mg/dL Negative Urine Bilirubin - Dipstick NEGATIVE Negative Urine Ketone TRACE mg/dL High Negative Urine Specific [place] 1.020 N 1.010-1.030 Urine Blood TRACE Negative Urine PH 6.0 Low 6.5-7.5 Urine Protein - Dipstick 30 mg/dL High Negative Urine Urobilinogen - Dipstick 0.2 E.U./dL N 0.2-1.0 Urine Nitrite - Dipstick POSITIVE Abnormal Negative Urine Leuk Esterase LARGE Abnormal Negative Urine RBC 0-2 rbc/hpf 0-2 Urine WBC > 50 wbc/hpf High 0-7 Urine Epithelial Cells FEW /lpf None Seen Urine Calcium Oxalate Crystals MODERATE None Seen Urine Bacteria MANY Abnormal None Seen Source: URINE, CLEAN CAT <SEE NOTE> 2 Culture If 05/07/2018 [facility] Culture If CULTURE TO 3 Indicated Comment [address] Indicated Comment [place]O <[place] [address] NOTE> [phone] Source: URINE, CLEAN CAT <SEE NOTE> 4 Urine Culture 05/07/2018 [facility] Urine Culture ESCHERICHIA COLI Abnormal [address] [place] [address] [phone] Quantity > 100,000 CFU/mL 6 Urine Culture URETHRAL LA NENA Quantity 10,000 - 50,000 <SEE NOTE> 7 Escherichia Coli 05/07/2018 [facility] Nitrofurantoin <=[address] [place], [place] [address] [phone] Trimethoprim/Sulfamethoxazole >=320 R Ampicillin <=2 S Cefazolin <=4 S Ampicillin/Sulbactam <=2 S Ciprofloxacin <=0.25 S Piperacillin/Tazobactam <=4 S Ceftazidime <=1 S Ceftriaxone <=1 S Cefepime <=1 S Levofloxacin <=0.12 S Imipenem <=0.25 S Gentamicin <=1 S Tobramycin <=1 S CBS W/Automated Diff 04/22/2018 [facility] White Blood 7.3 K/uL N 3.1-10.[address] [place] [address] [phone] Red Blood Count 4.45 M/uL N 3.90-5.40 Hemoglobin 12.6 gm/dL N 11.6-15.8 Hematocrit 39.3 % N 36.0-46.1 Mean Cell Volume 88.3 fl N 80.9-99.0 Mean Corpuscular HGB 28.3 pg N 25.9-32.7 Mean Corpuscular HGB Conc 32.1 g/dL N 30.8-34.3 Platelet Count 383 K/uL High 155-360 Red Cell Distri Width SD 45.8 fl N 3-47 Red Cell Distri Width %CV 14.4 % N 11.7-14.4 Mean Platelet Volume 10.5 fL N 8.9-12.4 Neut% 53.2 % N 40.4-72.8 Lymph % 35.3 % N 20.0-42.0 Motley % 10.4 % N 4.3-13.2 Eo% 1.0 % N 0.0-6.6 Bas% 0.1 % N 0.0-1.1 Neut# 3.87 K/uL N 1.8-7.0 Lymph # 2.57 K/uL N 1.0-4.0 [place] # 0.76 K/uL N 0.3-0.9 Eos # 0.07 K/uL N 0.0-0.5 Baso # 0.01 K/uL N 0.0-0.1 Laboratory test 04/22/2018 [facility] Vitamin 33.5 30.0-100.0 9 finding [address] D,25-Hydroxy ng/[place] [address] [phone] Comprehensive 04/22/2018 [facility] Glucose 77 mg/dL N 74-106 Metabolic Panel [address] [place] [address] [phone] BUN 13 mg/dL N 7-18 Creatinine 0.9 mg/dL N 0.6-1.3 Glom Filtration Rate, Estimate >60 mL/min >60 If >60 mL/min >60 10 BUN/Creat 14.4 ratio Sodium 135 mmol/L Low 136-145 Potassium 4.1 mmol/L N 3.5-5.1 Chloride 99 mmol/L N 98-107 Carbon Dioxide 30 mmol/L N 21-32 Anion Gap 6 mEq/L Low 8-16 Calcium 9.6 mg/dL N 8.5-10.1 Total Protein 7.0 g/dL N 6.4-8.2 Albumin 3.9 g/dL N 3.4-5.0 Globulin 3.1 g/dL N 1.9-4.3 Alb/Glob 1.3 ratio Bilirubin,Total 0.6 mg/dL N 0.2-1.0 Sgot/Ast 14 U/L Low 15-37 11 SGPT/Alt 26 U/L N 12-78 Alkaline Phosphatase 38 U/L Low 45-117 LDL Cholesterol Profile 04/22/2018 [facility] Cholesterol 159 mg/dL <200 12 [address] [place] [address] [phone] Triglycerides 88 mg/dL <150 13 HDL Cholesterol 87 mg/dL >40 14 LDL-Cholesterol 54 mg/dL < 100 15 Ua RFX Micro & Culture 03/01/2018 [facility] Urine Color YELLOW Yellow 16 II [address] [place] [address] [phone] Urine Clarity CLEAR Clear Urine Glucose - Dipstick NEGATIVE mg/dL Negative Urine Bilirubin - Dipstick NEGATIVE Negative Urine Ketone NEGATIVE mg/dL Negative Urine Specific [place] 1.010 N 1.010-1.030 Urine Blood NEGATIVE Negative Urine PH 6.0 Low 6.5-7.5 Urine Protein - Dipstick NEGATIVE mg/dL Negative Urine Urobilinogen - Dipstick 0.2 E.U./dL N 0.2-1.0 Urine Nitrite - Dipstick NEGATIVE Negative Urine Leuk Esterase NEGATIVE Negative Source: URINE, CLEAN CAT <SEE NOTE> 17 Urine Culture 02/11/2018 [facility] Urine ESCHERICHIA COLI Abnormal [address] [facility] [place] [address] [phone] Quantity > 100,000 CFU/mL 19 Urine Culture URETHRAL LA NENA Quantity 10,000 - 100,000 <SEE NOTE> 20 Escherichia Coli 02/11/2018 [facility] Nitrofurantoin <=16 S [address] [place] [address] [phone] Trimethoprim/Sulfamethoxazole <=20 S Ampicillin 8 S Cefazolin <=4 S Ampicillin/Sulbactam 4 S Ciprofloxacin <=0.25 S Piperacillin/Tazobactam <=4 S Ceftazidime <=1 S Ceftriaxone <=1 S Cefepime <=1 S Levofloxacin <=0.12 S Imipenem <=0.25 S Gentamicin <=1 S Tobramycin <=1 S Urine Dipstick 02/11/2018 [facility] Ua Color yellow Yellow Ua Clarity clear Clear Ua Leuko positive (70 +) Negative Ua Nitrite negative Negative Ua Urobilinogen 0.2 0.2 - 1.0 E.U./dL Ua Protein negative Negative Ua PH 5.0 Low 6.5-7.5 Ua Blood negative Negative Ua Specific [place] 1.015 1.010-1.030 Ua Ketones negative Negative Ua Bilirubin negative Negative Ua Glucose negative Negative TSH Reflex FT4 02/04/2018 [facility] Thyroid Stim 0.97 uIU/mL N 0.30-4.20 21 And/Or FT3 [address] [facility] [place] [address] [phone] Reflex add FT3? Y Reflex add FT4? Y Magnesium 02/04/2018 [facility] Magnesium 2.0 mg/dL N 1.8-2.[address] [place] [address] [phone] Reflex add FT3? Y Reflex add FT4? Y Comprehensive Metabolic 02/04/2018 [facility] Glucose 81 mg/dL N 74-106 Panel [address] [place] [address] [phone] BUN 14 mg/dL N 7-18 Creatinine 1.1 mg/dL N 0.6-1.3 Glom Filtration Rate, Estimate 52 mL/min >60 If >60 mL/min >60 22 BUN/Creat 12.7 ratio Sodium 133 mmol/L Low 136-145 Potassium 4.2 mmol/L N 3.5-5.1 Chloride 98 mmol/L N 98-107 Carbon Dioxide 26 mmol/L N 21-32 Anion Gap 9 mEq/L N 8-16 Calcium 8.8 mg/dL N 8.5-10.1 Total Protein 7.3 g/dL N 6.4-8.2 Albumin 3.9 g/dL N 3.4-5.0 Globulin 3.4 g/dL N 1.9-4.3 Alb/Glob 1.1 ratio Bilirubin,Total 0.5 mg/dL N 0.2-1.0 Sgot/Ast 19 U/L N 15-37 SGPT/Alt 29 U/L N 12-78 Alkaline Phosphatase 37 U/L Low 45-117 Reflex add FT3? Y Reflex add FT4? Y CBS W/Automated Diff 02/04/2018 [facility] White Blood 5.5 K/uL N 3.1-10.[address] [place] [address] [phone] Red Blood Count 4.38 M/uL N 3.90-5.40 Hemoglobin 12.8 gm/dL N 11.6-15.8 Hematocrit 38.5 % N 36.0-46.1 Mean Cell Volume 87.9 fl N 80.9-99.0 Mean Corpuscular HGB 29.2 pg N 25.9-32.7 Mean Corpuscular HGB Conc 33.2 g/dL N 30.8-34.3 Platelet Count 328 K/uL N 155-360 Red Cell Distri Width SD 43.2 fl N 3-47 Red Cell Distri Width %CV 13.8 % N 11.7-14.4 Mean Platelet Volume 11.3 fL N 8.9-12.4 Neut% 54.0 % N 40.4-72.8 Lymph % 32.7 % N 20.0-42.0 Motley % 11.4 % N 4.3-13.2 Eo% 1.7 % N 0.0-6.6 Bas% 0.2 % N 0.0-1.1 Neut# 2.95 K/uL N 1.8-7.0 Lymph # 1.78 K/uL N 1.0-4.0 Motley # 0.62 K/uL N 0.3-0.9 Eos # 0.09 K/uL N 0.0-0.5 Baso # 0.01 K/uL N 0.0-0.1 Laboratory test 05/24/2017 [facility] [place] Laboratory Surgical Interface SEE RESULT 23 finding [phone] Order BELOW Klebsiella 05/21/2017 [facility] Nitrofurantoin 256 R Pneumoniae [address] [place] [address] [phone] Trimethoprim/Sulfamethoxazole 40 S Ampicillin >=32 R Cefazolin <=4 S Ampicillin/Sulbactam 16 I Ciprofloxacin 1 I Piperacillin/Tazobactam 8 S Ceftazidime <=1 S Ceftriaxone <=1 S Cefepime <=1 S Levofloxacin 4 I Imipenem <=0.25 S Gentamicin <=1 S Tobramycin <=1 S Urine Culture 05/21/2017 [facility] Urine Culture KLEBSIELLA Abnormal [address] PNEUM <[place] [address] NOTE> [phone] Quantity > 100,000 CFU/mL N 25 Urine Culture URETHRAL [place] NENA Quantity > 100,000 CFU/mL N 26 Laboratory 05/14/2017 [facility] [address] Vitamin 38.0 30.0-100.0 27, 28 test finding [address] [place] [address] D,25-Hydroxy ng/[place] [address] [phone] Basic 05/14/2017 [facility] [address] Glucose 87 mg/dL N 74-[address] [place] [address] [place] [address] [phone] BUN 13 mg/dL N 7-18 Creatinine 1.0 mg/dL N 0.6-1.3 Glom Filtration Rate, Estimate 58 mL/min >60 If >60 mL/min >60 29 BUN/Creat 13.0 ratio Sodium 137 mmol/L N 136-145 Potassium 4.1 mmol/L N 3.5-5.1 Chloride 102 mmol/L N 98-107 Carbon Dioxide 30 mmol/L N 21-32 Anion Gap 5 mEq/L Low 8-16 Calcium 8.9 mg/dL N 8.5-10.1 Liver Function Tests 05/14/2017 [facility] [address] Total Protein 7.3 g/dL N 6.4-8.2 [address] [place] [address] [phone] Albumin 3.8 g/dL N 3.4-5.0 Globulin 3.5 g/dL N 1.9-4.3 Alb/Glob 1.1 ratio Bilirubin,Total 0.4 mg/dL N 0.2-1.0 Bilirubin,Direct < 0.1 mg/dL N 0.0-0.2 Bilirubin,Indirect 0.3 mg/dL N 0.0-0.9 Sgot/Ast 25 U/L N 15-37 SGPT/Alt 37 U/L N 12-78 Alkaline Phosphatase 38 U/L Low 45-117 LDL Cholesterol Profile 05/14/2017 [facility] [address] Cholesterol 154 mg/dL <980 34 [address] [place] [address] [phone] Triglycerides 85 mg/dL <150 31 HDL Cholesterol 73 mg/dL >40 32 LDL-Cholesterol 64 mg/dL < 100 33 Urine Culture 04/18/2017 [facility] Urine ESCHERICHIA COLI Abnormal [address] [place] [address] [phone] Quantity > 100,000 CFU/mL N 35 Urine Culture URETHRAL [place] NENA Quantity 50,000 - 100,000 <SEE NOTE> N 36 Escherichia Coli 04/18/2017 [facility] Nitrofurantoin <=[address] [place] [address] [phone] Trimethoprim/Sulfamethoxazole <=20 S Ampicillin <=2 S Cefazolin <=4 S Ampicillin/Sulbactam <=2 S Ciprofloxacin <=0.25 S Piperacillin/Tazobactam <=4 S Ceftazidime <=1 S Ceftriaxone <=1 S Cefepime <=1 S Levofloxacin <=0.12 S Imipenem <=0.25 S Gentamicin <=1 S Tobramycin <=1 S Urinalysis 06/26/2016 N2N/CCD Import Appearance Cloudy Bilirubin, Ua Negative Negative Blood, Ua Negative Negative Color, Ua Yellow Glucose, Ua Negative Negative Ketones, Ua Negative Negative Leukocyte Esterase 2+ Abnormal Negative Nitrite, Ua Negative Negative Protein, Ua Negative Negative Specific [place], Ua 1.019 1 1.003 - 1.030 Urobilinogen, Ua 0.2 mg/dL 0 - 1.0 pH, Urine 6.0 1 5.0 - 7.5 Urine microscopic 06/26/2016 N2N/CCD Import Bacteria, Ua 1+ [HPF] Epithelial cells Ua 2+ [HPF] Hyaline Casts, Ua 0-2 [LPF] Mucus, Ua 1+ [HPF] RBC, Ua None Seen 0 - 2 [HPF] WBC, Ua * 6-10 0 - 5 [HPF] aPTT 06/26/2016 N2N/CCD Import aPTT 31.1 s 22.0 - 32.6 BMP 06/26/2016 N2N/CCD Import Anion Gap 8 mmol/L 7 - 16 BUN/Creatinine Ratio 17.3 Ratio 10.0 - 20.0 Calcium 8.8 mg/dL 8.4 - 10.2 Chloride 103 mmol/L 100 - 108 Co2 26 mmol/L 22 - 31 Creatinine 0.81 mg/dL 0.60 - 1.00 GFR MDRD Af Amer >60 >59 ml/min/1.73m2 GFR MDRD Non Af Amer >60 >59 ml/min/1.73m2 Glom Filt Rate, Est See Notes Glucose 107 mg/dL High 70 - 99 Potassium 3.8 mmol/L 3.6 - 5.2 Sodium 137 mmol/L 136 - 145 Urea nitrogen 14 mg/dL 7 - 24 CBC - Daily 06/26/2016 N2N/CCD Import Hematocrit 35.9 % Low 36.0 - 47.0 Hemoglobin 11.6 g/dL Low 12.0 - 16.0 MCH 28.1 pg 27.0 - 32.0 MCHC 32.3 g/dL 32.0 - 36.0 MCV 87.1 fL 80.0 - 95.0 MPV 9.0 fL 7.1 - 10.7 Platelets 288 10*3/uL 150 - 450 RBC 4.12 10*6/uL 4.00 - 5.40 RDW 13.8 % 10.5 - 14.5 WBC 8.5 10*3/uL 4.1 - 11.0 Lymphocytes # 06/25/2016 N2N/CCD Import Lymphocytes # 5.37 1.8-7.0 (Auto) (Auto) Lymphocytes % 06/25/2016 N2N/CCD Import Lymphocytes % 20 17-56 Manual Slide 06/25/2016 N2N/CCD Import Manual Slide Diff Ordered Review Review (Hematology) (Hematology) Monocytes % 06/25/2016 N2N/CCD Import Monocytes % 3 0-10 Neutrophils # 06/25/2016 N2N/CCD Import Neutrophils # 10.24 High 1.8-7.0 (Auto) (Auto) Ferritin 06/25/2016 N2N/CCD Import Ferritin 25 ng/mL 8 - 252 Troponin I 06/25/2016 N2N/CCD Import Troponin I <0.06 0.00 - 0.10 ng/mL Protime-Inr 06/25/2016 N2N/CCD Import Inr 1.06 1 Protime 10.7 s 9.2 - 11.9 B-type natriuretic 06/25/2016 N2N/CCD Import B natriuretic 257 pg/mL High 0 - 100 peptide peptide CBC and 06/25/2016 N2N/CCD Import Basophils 0.0 10*3/uL 0.0 - differential Absolute 0.2 Basophils Relative 0.2 % 0.0 - 4.0 Eosinophils Absolute 0.0 10*3/uL 0.0 - 0.5 Eosinophils Relative 0.1 % 0.0 - 5.0 Hematocrit 38.3 % 36.0 - 47.0 Hemoglobin 12.7 g/dL 12.0 - 16.0 Lymphocytes Absolute 1.5 10*3/uL 1.2 - 4.8 Lymphocytes Relative 10.6 % Low 16.0 - 52.0 MCH 28.2 pg 27.0 - 32.0 MCHC 33.1 g/dL 32.0 - 36.0 MCV 85.3 fL 80.0 - 95.0 MPV 9.1 fL 7.1 - 10.7 Monocytes Absolute 0.7 10*3/uL 0.0 - 0.8 Monocytes Relative 4.7 % 0.0 - 8.0 Neutrophils % 84.4 % High 35.0 - 75.0 Neutrophils Absolute 11.9 10*3/uL High 1.8 - 7.7 Platelets 330 10*3/uL 150 - 450 RBC 4.49 10*6/uL 4.00 - 5.40 RDW 13.8 % 10.5 - 14.5 WBC 14.1 10*3/uL High 4.1 - 11.0 Comprehensive metabolic 06/25/2016 N2N/CCD Import Alb/Glob ratio 1.2 Ratio panel Albumin 3.9 g/dL 3.2 - 4.5 Alkaline Phosphatase 52 U/L 45 - 117 Alt 23 U/L 12 - 78 Anion Gap 13 mmol/L 7 - 16 Ast 12 U/L 11 - 39 BUN/Creatinine Ratio 16.5 Ratio 10.0 - 20.0 Bilirubin, Total 0.5 mg/dL 0.0 - 1.0 Calcium 8.7 mg/dL 8.4 - 10.2 Chloride 103 mmol/L 100 - 108 Co2 22 mmol/L 22 - 31 Creatinine 0.91 mg/dL 0.60 - 1.00 GFR MDRD Af Amer >60 >59 ml/min/1.73m2 GFR MDRD Non Af Amer >60 >59 ml/min/1.73m2 Globulin 3.2 g/dL 2.7 - 4.3 Glom Filt Rate, Est See Notes Glucose 127 mg/dL High 70 - 99 Potassium 4.1 mmol/L 3.6 - 5.2 Protein, Total 7.1 g/dL 6.4 - 8.2 Sodium 138 mmol/L 136 - 145 Urea nitrogen 15 mg/dL 7 - 24 Hemoglobin A1c 06/25/2016 N2N/CCD Import Est. Average Glucose 117 mg/dL Hemoglobin A1c 5.7 % 4.0 - 6.0 Lipase 06/25/2016 N2N/CCD Import Lipase 109 U/L 65 - 230 Lipid panel 06/25/2016 N2N/CCD Import Chol/HDL Ratio 2.5 Ratio Cholesterol 164 mg/dL 0 - 200 HDL 66 mg/dL >40 LDL Calculated 81 mg/dL <130 Triglycerides 85 mg/dL 30 - 200 Magnesium 06/25/2016 N2N/CCD Import Magnesium 1.9 mg/dL 1.7 - 2.4 Comprehensive 06/25/2016 [facility] Glucose 122 mg/dL High 74-106 37 Metabolic Panel [address] [place] [address] [phone] BUN 16 mg/dL N 7-18 Creatinine 1.0 mg/dL N 0.6-1.3 Glom Filtration Rate, Estimate 59 mL/min N >60 If >60 mL/min N >60 38 BUN/Creat 16.0 ratio N Sodium 134 mmol/L Low 136-145 Potassium 3.2 mmol/L Low 3.5-5.1 Chloride 98 mmol/L N 98-107 Carbon Dioxide 26 mmol/L N 21-32 Anion Gap 10 mEq/L N 8-16 Calcium 9.6 mg/dL N 8.5-10.1 Total Protein 7.9 g/dL N 6.4-8.2 Albumin 4.3 g/dL N 3.4-5.0 Globulin 3.6 g/dL N 1.9-4.3 Alb/Glob 1.2 ratio N Bilirubin,Total 0.4 mg/dL N 0.2-1.0 Sgot/Ast 15 U/L N 15-37 SGPT/Alt 25 U/L N 12-78 Alkaline Phosphatase 55 U/L N 45-117 Laboratory test finding 06/25/2016 [facility] CK 68 U/L N 26-192 [address] [place] [address] [phone] Troponin-I < 0.015 ng/mL N 39 CBS W/Automated 06/25/2016 [facility] White Blood 17.2 K/uL High 3.1-10.7 Diff [address] [place] [address] [phone] Red Blood Count 4.70 M/uL N 3.90-5.40 Hemoglobin 13.9 gm/dL N 11.6-15.8 Hematocrit 40.7 % N 36.0-46.1 Mean Cell Volume 86.6 fl N 80.9-99.0 Mean Corpuscular HGB 29.6 pg N 25.9-32.7 Mean Corpuscular HGB Conc 34.2 g/dL N 30.8-34.3 Platelet Count 419 K/uL High 155-360 Red Cell Distri Width SD 42.0 fl N 3-47 Red Cell Distri Width %CV 13.7 % N 11.7-14.4 Mean Platelet Volume 11.7 fL N 8.9-12.4 40 Neut# 10.24 K/uL High 1.8-7.0 Lymph # 5.37 K/uL N 1.8-7.0 Motley # 1.49 K/uL High 0.3-0.9 Eos # 0.10 K/uL N 0.0-0.5 Baso # 0.02 K/uL N 0.0-0.1 Slide Review 06/25/2016 [facility] Slide Review DIFF ORDERED N [address] [place], [place] [address] [phone] Differential-WBC 06/25/2016 [facility] Total Cells 100 #CELLS N Confirm [address] [place] [address] [phone] Band% 3 % N 0-8 Neutrophils% 70 % N 33-73 Lymph% 20 % N 17-56 Atypical Lymph% 3 % N 0-7 Monocyte% 3 % N 0-10 Basophil% 1 % N 0-2 Platelet Estimate NORMAL N Anisocytosis 0-1+ N Laboratory test 06/25/2016 N2N/CCD Import Alanine Aminotransferase 25 12 -78 finding (Alt/SGPT) Albumin/Globulin Ratio 1.2 BUN/Creatinine Ratio 16.0 Band Neutrophils % 3 0-8 Basophils # (Auto) 0.02 0.0-0.1 Blood Urea Nitrogen 16 7-18 Calcium Level 9.6 8.5-10.1 Carbon Dioxide Level 26 21-32 Chloride Level 98 98-107 Eosinophils # (Auto) 0.10 0.0-0.5 Estimated GFR (Non- 59 >60 Glucose Screen 122 High 74-106 Mean Corpuscular Hemoglobin 29.6 25.9-32.7 Mean Corpuscular Hemoglobin Concent 34.2 30.8-34.3 Mean Corpuscular Volume 86.6 80.9-99.0 Monocytes # (Auto) 1.49 High 0.3-0.9 Potassium Level 3.2 Low 3.5-5.1 RDW Coefficient of Variation 13.7 11.7-14.4 Red Cell Distribution Width 42.0 3-47 Sodium Level 134 Low 136-145 Total Bilirubin 0.4 0.2-1.0 Aspartate Amino 06/25/2016 N2N/CCD Import Aspartate Amino 15 15-37 Transf (Ast/Sgot) Transf (Ast/Sgot) Atypical 06/25/2016 N2N/CCD Import Atypical 3 0-7 Lymphocytes % Lymphocytes % Basophils % 06/25/2016 N2N/CCD Import Basophils % 1 0-2 Differential Total 06/25/2016 N2N/CCD Import Differential Total 100 Cells Counted Cells Counted Thyroid Stim 04/21/2016 [facility] Thyroid Stim 0.59 N 0.30-4.[address] Hormone uIU/[place] [address] [phone] @[facility] Pat Id: [id number] @[facility] Req #: [id number] Is Patient Fasting? Unknown CBS W/Automated Diff 04/21/2016 [facility] White Blood 5.7 K/uL N 3.1-10.[address] [place] [address] [phone] Red Blood Count 4.36 M/uL N 3.90-5.40 Hemoglobin 12.6 gm/dL N 11.6-15.8 Hematocrit 37.9 % N 36.0-46.1 Mean Cell Volume 86.9 fl N 80.9-99.0 Mean Corpuscular HGB 28.9 pg N 25.9-32.7 Mean Corpuscular HGB Conc 33.2 g/dL N 30.8-34.3 Platelet Count 343 K/uL N 155-360 Red Cell Distri Width SD 41.6 fl N 3-47 Red Cell Distri Width %CV 13.3 % N 11.7-14.4 Mean Platelet Volume 12.1 fL N 8.9-12.4 Neut% 62.5 % N 40.4-72.8 Lymph % 27.6 % N 17.0-46.1 Motley % 8.6 % N 4.3-13.2 Eo% 1.1 % N 0.0-6.6 Bas% 0.2 % N 0.0-1.1 Neut# 3.56 K/uL N 1.8-7.0 Lymph # 1.57 K/uL Low 1.8-7.0 Motley # 0.49 K/uL N 0.3-0.9 Eos # 0.06 K/uL N 0.0-0.5 Baso # 0.01 K/uL N 0.0-0.1 @[facility] Pat Id: [id number] @[facility] Req #: [id number] Renal Function Panel 04/21/2016 [facility] Glucose 95 mg/dL N 74-106 [address] [place] [address] [phone] BUN 15 mg/dL N 7-18 Creatinine 1.2 mg/dL N 0.6-1.3 Glom Filtration Rate, Estimate 47 mL/min N >60 If 57 mL/min N >60 42 BUN/Creat 12.5 ratio N Sodium 132 mmol/L Low 136-145 Potassium 4.6 mmol/L N 3.5-5.1 Chloride 98 mmol/L N 98-107 Carbon Dioxide 26 mmol/L N 21-32 Anion Gap 8 mEq/L N 8-16 Calcium 8.8 mg/dL N 8.5-10.1 Phosphorous 3.4 mg/dL N 2.5-4.0 Albumin 4.1 g/dL N 3.4-5.0 @[facility] Pat Id: [id number] @[facility] Req #: [id number] Is Patient Fasting? Unknown Laboratory test 04/21/2016 N2N/CCD Import Basophils (%) (Auto) 0.2 0.0- 1.1 finding Eosinophils (%) (Auto) 1.1 0.0-6.6 Lymphocytes (%) (Auto) 27.6 17.0-46.1 Monocytes (%) (Auto) 8.6 4.3-13.2 Neutrophils (%) (Auto) 62.5 40.4-72.8 Phosphorus Level 04/21/2016 N2N/CCD Import Phosphorus Level 3.4 2.5-4.0 Thyroid Stimulating 04/21/2016 N2N/CCD Import Thyroid 0.59 0.30-4.20 Hormone (TSH) Stimulating Hormone (TSH) Liver Function 05/13/2015 [facility] Total Protein 7.5 g/dL 6.4-8.2 Tests [address] [place] [address] [phone] Albumin 4.1 g/dL 3.4-5.0 Globulin 3.4 g/dL 1.9-4.3 Alb/Glob 1.2 ratio Bilirubin,Total 0.5 mg/dL 0.2-1.0 Bilirubin,Direct 0.2 mg/dL 0.0-0.2 Bilirubin,Indirect 0.3 mg/dL 0.0-0.9 Sgot/Ast 17 U/L 15-37 SGPT/Alt 30 U/L 12-78 Alkaline Phosphatase 48 U/L 45-117 LDL Cholesterol 05/13/2015 [facility] Cholesterol 167 mg/dL < 200 43 Profile [address] [place] [address] [phone] Triglycerides 95 mg/dL < 150 44 HDL Cholesterol 65 mg/dL > 40 45 LDL-Cholesterol 83 mg/dL < 100 46 CBC W/Automated Diff 05/13/2015 [facility] White Blood 6.5 K/uL 3.1-10.[address] [place] [address] [phone] Red Blood Count 4.30 M/uL 3.90-5.40 Hemoglobin 12.8 gm/dL 11.6-15.8 Hematocrit 38.9 % 36.0-46.1 Mean Cell Volume 90.5 fl 80.9-99.0 Mean Corpuscular HGB 29.8 pg 25.9-32.7 Mean Corpuscular HGB Conc 32.9 g/dL 30.8-34.3 Platelet Count 272 K/uL 155-360 Red Cell Distri Width SD 42.6 fl 3-47 Red Cell Distri Width %CV 13.3 % 11.7-14.4 Mean Platelet Volume 12.0 fL 8.9-12.4 Neut% 55.0 % 40.4-72.8 Lymph % 34.3 % 17.0-46.1 Motley % 9.6 % 4.3-13.2 Eo% 0.9 % 0.0-6.6 Bas% 0.2 % 0.0-1.1 Neut# 3.55 K/uL 1.0-7.0 Lymph # 2.21 K/uL 1.8-7.0 Motley # 0.62 K/uL 0.3-0.9 Eos # 0.06 K/uL 0.0-0.5 Baso # 0.01 K/uL 0.0-0.1 Renal Function Panel 05/13/2015 [facility] Glucose 92 mg/dL 74-106 [address] [place] [address] [phone] BUN 15 mg/dL 7-18 Creatinine 0.8 mg/dL 0.6-1.3 Glom Filtration Rate, Estimate >60 mL/min >60 If >60 mL/min >60 47 BUN/Creat 18.7 ratio Sodium 136 mmol/L 136-145 Potassium 4.1 mmol/L 3.5-5.1 Chloride 99 mmol/L 98-107 Carbon Dioxide 29 mmol/L 21-32 Anion Gap 8 mEq/L 8-16 Calcium 9.6 mg/dL 8.5-10.1 Phosphorous 3.3 mg/dL 2.5-4.0 Albumin 4.1 g/dL 3.4-5.0 Laboratory test 04/21/2015 [facility] [place] Laboratory Urine Culture SEE RESULT 48 finding [phone] BELOW Laboratory test 04/10/2014 N2N/CCD Import Hemocult # 1 Negative finding Hemocult # 2 Negative Hemocult # 3 Negative Laboratory test finding 03/26/2014 N2N/CCD Import Bas% 0.0 % 0.0-1.1 Baso # 0.00 K/uL 0.0-0.1 CK 88 U/L 26-190 Eo% 1.6 % 0.0-6.6 Eos # 0.10 K/uL 0.0-0.5 Hematocrit 38.7 % 36.0-46.1 Hemoglobin 12.7 gm/dL 11.6-15.8 Lymph # 2.51 K/uL 0.8-3.4 Lymph % 40.7 % 17.0-46.1 Mean Cell Volume 84.9 fl 80.9-99.0 Mean Corpuscular HGB 27.9 pg 25.9-32.7 Mean Corpuscular HGB Conc 32.8 g/dL 30.8-34.3 Mean Platelet Volume 12.2 fL 8.9-12.4 Motley # 0.56 K/uL 0.3-0.9 Motley % 9.1 % 4.3-13.2 Neut# 3.00 K/uL 1.0-7.0 Neut% 48.6 % 40.4-72.8 Platelet Count 287 K/uL 155-360 Red Blood Count 4.56 M/uL 3.90-5.40 Red Cell Distri Width %CV 18.1 % High 11.7-14.4 Red Cell Distri Width SD 55.6 fl High 3-47 Urine Culture See Note 49 White Blood Count 6.2 K/uL 3.1-10.7 Iron-Tibc-%Sat 03/26/2014 N2N/CCD Import Serum Iron 55 g/dL 25-156 Total Iron Binding Capacity 463 g/dL High 245-419 Transferrin %Saturation 12 % 12-57 LDL Cholesterol Profile 03/26/2014 N2N/CCD Import Cholesterol 138 mg/dL 120-200 HDL Cholesterol 54 mg/dL 29-83 LDL-Cholesterol 62 mg/dL 62-185 Triglycerides 111 mg/dL 16-231 Liver Function Tests 03/26/2014 N2N/CCD Import Alb/Glob 1.1 ratio Albumin 3.6 g/dL 3.5-5.0 Alkaline Phosphatase 44 U/L Low 50-136 Bilirubin,Direct 0.1 mg/dL 0.1-0.4 Bilirubin,Indirect 0.3 mg/dL 0.0-0.9 Bilirubin,Total 0.4 mg/dL 0.2-1.2 Globulin 3.4 g/dL 1.9-4.3 SGPT/Alt 32 U/L 30-65 Sgot/Ast 23 U/L 16-40 Total Protein 7.0 g/dL 6.3-8.0 Renal Function Panel 03/26/2014 N2N/CCD Import Albumin 3.6 g/dL 3.5-5.0 Anion Gap 11 mEq/L 8-16 BUN 14 mg/dL 5-23 BUN/Creat 15.5 ratio Calcium 8.9 mg/dL 8.5-10.1 Carbon Dioxide 26 mEq/L 18-29 Chloride 106 mmol/L 98-107 Creatinine 0.9 mg/dL 0.5-1.4 Glom Filtration Rate, Estimate >60 mL/min >60 Glucose 88 mg/dL 76-115 If >60 mL/min >60 50 Phosphorous 2.8 mg/dL 2.4-4.7 Potassium 3.9 mmol/L 3.5-5.1 Sodium 139 mmol/L 136-145 Laboratory test 03/23/2014 N2N/CCD Import Urine Culture See Note 51 finding Laboratory test 05/29/2013 N2N/CCD Import Magnesium 2.0 mg/dL 1.7-2.6 finding Troponin I 0 ng/mL 0-0.06 52 Basic Metabolic Panel 05/29/2013 N2N/CCD Import Anion Gap 8.0 mmol/L 2- 11 BUN/Creatinine Ratio 18.8 8-20 Blood Urea Nitrogen 15 mg/dL 6-24 Calcium 10.3 mg/dL High 8.1-9.9 Chloride 99 mmol/L Low 101-111 Co2 Carbon Dioxide 29.0 mmol/L 22-32 Creatinine 0.80 mg/dL 0.50-1.40 Egfr 92.6 >60 53 Egfr Non- 72.0 >60 Glucose 88 mg/dL 70-100 Potassium 4.4 mmol/L 3.5-5.0 Sodium 136 mmol/L 133-145 Laboratory test 04/30/2013 N2N/CCD Import CA 125 Antigen 4.9 U/mL 2.0- 35.0 54 finding Laboratory test 04/25/2013 N2N/CCD Import Creatine Kinase 65 U/L 0-200 finding Basic Metabolic 04/25/2013 N2N/CCD Import Anion Gap 6.0 mmol/L 2-11 Panel BUN/Creatinine Ratio 18.8 8-20 Blood Urea Nitrogen 15 mg/dL 6-24 Calcium 9.8 mg/dL 8.1-9.9 Chloride 103 mmol/L 101-111 Co2 Carbon Dioxide 29.0 mmol/L 22-32 Creatinine 0.80 mg/dL 0.50-1.40 Egfr 92.6 >60 55 Egfr Non- 72.0 >60 Glucose 88 mg/dL 70-100 Potassium 4.0 mmol/L 3.5-5.0 Sodium 138 mmol/L 133-145 CBC Auto Diff 04/25/2013 N2N/CCD Import Abs Basophils 0 10^3/uL 0-0.2 Abs Eosinophils 0.1 10^3/uL 0-0.6 Abs Lymphocytes 2.6 10^3/uL 1.0-4.8 Abs Monocytes 0.5 10^3/uL 0-0.8 Abs Neutrophils 3.7 10^3/uL 1.5-7.7 Abs Nucleated RBC 0 10^3/uL Basophil % 0.3 % 0-2 Eosinophil % 2.0 % 0-6 Granulocyte % 53.6 % 38-83 Hematocrit 37 % 35-47 Hemoglobin 12.0 g/dL 12.0-16.0 Lymphocyte % 36.9 % 25-47 Mean Corpuscular HGB Conc 33 g/dL 31-36 Mean Corpuscular Hemoglobin 28 pg 27-31 Mean Corpuscular Volume 85 fL 80-97 Mean Platelet Volume 10 um3 7.4-10.4 Monocyte % 7.2 % 1-9 Nucleated Red Blood Cells % 0 Platelet Count 290 10^3/uL 150-450 Red Blood Count 4.29 10^6/uL 4.0-5.4 Red Cell Distribution Width 17 % High 10.5-15 White Blood Count 6.9 10^3/uL 4.8-10.8 Lipid Profile 04/25/2013 N2N/[facility] Import Cholesterol 179 mg/dL Less than (Trig/Chol/HDL) 200 Cholesterol/HDL Ratio 2.9 Average 1-4.44 HDL Cholesterol 61 mg/dL High 40-60 56 LDL Cholesterol 88.2 Less Than 100 57 Triglycerides 149 mg/dL 40-200 Liver Function Panel 04/25/2013 N2N/[facility] Import Albumin 4.0 g/dL 3.2-5.2 Albumin/Globulin Ratio 1.6 1-3 Alkaline Phosphatase 40 U/L 30-110 Alt 21 U/L 14-54 Ast 25 U/L 12-42 Direct Bilirubin 0.1 mg/dL 0.1-0.5 Globulin 2.5 g/dL 2-4 Indirect Bilirubin 0.7 mg/dL 0.3-1.0 Total Bilirubin 0.8 mg/dL 0.4-1.5 Total Protein 6.5 g/dL 6.2-8.1 Vitamin D, 25 04/25/2013 N2N/[facility] Import 25-Hydroxy Vitamin D 44 ng/mL 58 Hydroxy Total 25-Hydroxy Vitamin D2 <4.0 ng/mL 25-Hydroxy Vitamin D3 44 ng/mL Lipid Profile 05/31/2012 N2N/[facility] Import Cholesterol 181 mg/dL Less Than 59 (Trig/Chol/HDL) 200 Cholesterol/HDL Ratio 2.74 AVERAGE 1-4.44 High Density Lipoprotein 66 mg/dL High 40-60 60 Low Density Lipoprotein 89 mg/dL Less Than 100 61 Triglyceride 132 mg/dL 40-200 Basic Metabolic Panel 05/31/2012 N2N/CCD Import Anion Gap 9.0 mmol/L 2- 11 62 BUN 15 mg/dL 6-24 BUN/Creatinine Ratio 21.4 High 8-20 Calcium 9.7 mg/dL 8.1-9.9 Chloride 103 mmol/L 101-111 Co2 (Carbon Dioxide) 29.0 mmol/L 22-32 Creatinine 0.7 mg/dL 0.50-1.40 Glucose 86 mg/dL 70-100 One Over Creatinine 1.42 Potassium 4.2 mmol/L 3.5-5.0 Sodium 141 mmol/L 135-145 eGFR 108.3 > 60 63 eGFR Non- 84.2 > 60 Laboratory test 02/28/2012 N2N/CCD Import CPK (Creatine 65 U/L 0-170 finding Kinase) TSH 2.10 MIU/ML 0.34-5.60 Basic Metabolic Panel 02/28/2012 N2N/CCD Import Anion Gap 6.0 mmol/L 2- 11 64 BUN 11 mg/dL 6-24 BUN/Creatinine Ratio 13.8 8-20 Calcium 9.1 mg/dL 8.1-9.9 Chloride 102 mmol/L 101-111 Co2 (Carbon Dioxide) 26.0 mmol/L 22-32 Creatinine 0.8 mg/dL 0.50-1.40 Glucose 89 mg/dL 70-100 One Over Creatinine 1.25 Potassium 4.0 mmol/L 3.5-5.0 Sodium 134 mmol/L Low 135-145 eGFR 92.9 > 60 65 eGFR Non- 72.2 > 60 CBC Auto Diff 02/28/2012 N2N/CCD Import Abs Basophils 0 0-0.2 Abs Eosinophils 0.1 0-0.6 Abs Lymphs 3.1 1.0-4.8 Abs Mononuclear 0.6 0-0.8 Absolute Neutrophil Count 3.7 1.5-7.7 Basophil % 0.3 % 0-2 Eosinophil % 1.6 % 0-6 Gran % 49.5 % 38-83 Hematocrit 38 % 35-47 Hemoglobin 12.8 g/dL 12.0-16.0 Lymph % 41.1 % 25-47 Mean Corpuscular HGB Cone 34 g/dL 32-36 Mean Corpuscular Hemoglob 31 pg 27-31 Mean Corpuscular Volume 92 um3 79-97 Mean Platelet Volume 9.9 um3 7.4-10.4 Mononuclear % 7.5 % 1-9 Platelet Count 283 CUMM 150-450 Red Cell Count 4.15 CUMM Low 4.2-5.4 Redcell Distribution WDTH 14 % 10.5-15 White Blood Count 7.4 CUMM 4.8-10.8 Lipid Profile 02/28/2012 N2N/CCD Import Cholesterol 152 mg/dL Less Than 66 (Trig/Chol/HDL) 200 Cholesterol/HDL Ratio 2.24 AVERAGE 1-4.44 High Density Lipoprotein 68 mg/dL High 40-60 67 Low Density Lipoprotein 68 mg/dL Less Than 100 68 Triglyceride 80 mg/dL 40-200 Liver Function Panel 02/28/2012 N2N/CCD Import Albumin 3.9 GM/DL 3.2- 5.2 Albumin/Globulin Ratio 1.5 1-3 Alkaline Phosphatase 36 U/L 30-110 Alt (SGPT) 23 U/L 14-54 Ast (Sgot) 25 U/L 12-42 Bilirubin Direct 0.1 mg/dL 0.1-0.5 Bilirubin Total 0.7 mg/dL 0.4-1.5 69 Globulin 2.6 GM/DL 2-4 Indirect Bilirubin 0.6 mg/dL 0.3-1.0 70 Total Protein 6.5 GM/DL 6.2-8.1 Vitamin D, 25 02/28/2012 N2N/CCD Import 25-Hydroxy Vitamin D 33 ng/mL ( ) 71 Hydroxy Total 25-Hydroxy Vitamin D2 <4.0 ng/mL () 25-Hydroxy Vitamin D3 33 ng/mL () Laboratory test 05/22/2011 N2N/CCD Import Vitamin D, 1,25 31 pg/mL 18- 78 72 finding Dihydroxy Vitamin D, 25 05/22/2011 N2N/CCD Import 25-Hydroxy Vitamin 52 ng/mL () 73 Hydroxy D Total 25-Hydroxy Vitamin D2 31 ng/mL () 25-Hydroxy Vitamin D3 21 ng/mL () 1 R30.0 2 URINE, CLEAN CATCH 3 CULTURE TO FOLLOW 4 URINE, CLEAN CATCH 5 ESCHERICHIA COLI 6 > 100,000 CFU/mL 7 10,000 - 50,000 CFU/mL 8 E78.5 I48.0 I10 9 Vitamin D deficiency has been defined by the Foster of Medicine and an Endocrine Society practice guideline as a level of serum 25-OH vitamin D less than 20 ng/mL (1,2). The Endocrine Society went on to further define vitamin D insufficiency as a level between 21 and 29 ng/mL (2). 1. IOM (Foster of Medicine). 2010. Dietary reference intakes for calcium and D. [facility]: The National Academies Press. 2. Radha MF, Deedee NC, [place] RODRIGUEZ, et al. Evaluation, treatment, and prevention of vitamin D deficiency: an Endocrine Society clinical practice guideline. JCEM. 2010; 96(7):1911-30. Performed at: RN - [facility] [address] [id number] Theater Set Production Designer: Aixa Hodge MD, Phone: [phone] Note: Persistent reduction for 3 months or more in an eGFR <60 mL/min/1.73 m2 defines CKD. Patients with eGFR values >/=60 mL/min/1.73 m2 may also have CKD if evidence of persistent proteinuria is present. The original MDRD equation for estimated GFR is not valid for patients less than 18 years of age. Additional information may be found at www.kdoqi.org. 11 Values below the stated reference ranges of AST and ALT can be seen in normal populations. Clinical correlation is suggested. 12 Reference Guidelines*: Desirable: ........... < 200 mg/dL Borderline High: ..... 200-239 mg/dL High: ................ >=240 mg/dL * The National Cholesterol Education Program (NCEP) 13 Reference Guidelines*: Normal: ............. < 150 mg/dL Borderline High: .... 150-199 mg/dL High: ............... 200-499 mg/dL Very High: .......... > 500 mg/dL * Source: National Cholesterol Education Program (NCEP) 14 Reference Guidelines*: Low HDL: ..... < 40 mg/dL Normal: ..... 40-60 mg/dL Desirable: ... > 60 mg/dL *The National Cholesterol Education Program(NCEP) 15 Reference Guidelines*: Optimal:........... <100 mg/dL Near Optimal....... 100-129 mg/dL Borderline High.... 130-159 mg/dL High............... 160-189 mg/dL Very High.......... >=190 mg/dL * Source: National Cholesterol Education Program (NCEP) 16 N39.0 17 URINE, CLEAN CATCH 18 ESCHERICHIA COLI 19 > 100,000 CFU/mL 20 10,000 - 100,000 CFU/mL 21 I48.0 22 Note: Persistent reduction for 3 months or more in an eGFR <60 mL/min/1.73 m2 defines CKD. Patients with eGFR values >/=60 mL/min/1.73 m2 may also have CKD if evidence of persistent proteinuria is present. The original MDRD equation for estimated GFR is not valid for patients less than 18 years of age. Additional information may be found at www.kdoqi.org. 23 SEE RESULT BELOW Name: ROMELIA MAGDALENO Nico : [address]: Rosanna Rico DO Acct: [id number] Unit: [id number] AGE: 71 Location: ENDO Re05/24/17 SEX: F Status: DEP REF SPEC: [id number] LUIS ALBERTO: 05/24/17-[address] [facility] [address]: Rosanna Rico DO REQ: [id number] RECD: 05/24/171 STATUS: INNA MOBLEY DR: Breanne Rhoades PA _ ORDERED: LEVEL 4/3 FINAL DIAGNOSIS 1. Terminal ileum, biopsy: -- Benign small intestinal mucosa with no significant pathologic abnormalities. -- No evidence of villous blunting or increased intraepithelial lymphocytes. -- No evidence of viral cytopathic effect or parasites. 2. Colon, right, biopsy: -- Lymphocytic colitis. 3. Colon, left, biopsy: -- Lymphocytic colitis. CLINICAL HISTORY 71 year old female with diarrhea presents for colonoscopy to rule out microscopic colitis. Last EGD and colonoscopy was in 2013 with normal results. POST-OPERATIVE DIAGNOSIS Colonoscopy to terminal ileum with good prep. Normal terminal ileum with biopsy taken, normal colon with biopsy taken and small non-bleeding internal hemorrhoid. Conclusions/Plan: Due for screening in 10 years. GROSS DESCRIPTION 1. The specimen is received in formalin labeled, Biopsy Terminal Ileum, and consists of a 0.4 x 0.3 x 0.2 cm aggregate of petit-red irregular soft tissue fragments which is submitted entirely in one cassette. 2. The specimen is received in formalin labeled, Biopsy Right Colon, and consists of a 0.6 x 0.6 by up to 0.2 cm aggregate of petit-pink irregular soft tissue fragments which is submitted entirely in one cassette. CONTINUED ON NEXT PAGE * ML=Testing performed at Main Lab DEPARTMENT OF PATHOLOGY, [address] [place] [address] Surjit Quigley M.D. Director [facility] # [id number] RUN DATE: 05/25/17 [facility] [place] LAB LIVE PAGE 2 Patient: ARSENJOHN MELENDEZRaúl Walsh [id number] (Continued) GROSS DESCRIPTION (Continued) GROSS DESCRIPTION (Continued) 3. The specimen is received in formalin labeled, Biopsy Left Colon, and consists of a 0.8 x 0.6 x 0.2 cm aggregate of petit-pink irregular soft tissue fragments which is submitted entirely in one cassette. Signed (signature on file) Caroline Luna MD 1515 END OF REPORT * ML=Testing performed at Main Lab DEPARTMENT OF PATHOLOGY, [address] [place] [address] Surjit Quigley M.D. Director [facility] # [id number] 24 KLEBSIELLA PNEUMONIAE 25 > 100,000 CFU/mL 26 > 100,000 CFU/mL 27 E78.5 E55.9 I10 28 Vitamin D deficiency has been defined by the Foster of Medicine and an Endocrine Society practice guideline as a level of serum 25-OH vitamin D less than 20 ng/mL (1,2). The Endocrine Society went on to further define vitamin D insufficiency as a level between 21 and 29 ng/mL (2). 1. IOM (Foster of Medicine). 2010. Dietary reference intakes for calcium and D. [place]: The National Academies Press. 2. Radha MF, Deedee NC, [place] RODRIGUEZ, et al. Evaluation, treatment, and prevention of vitamin D deficiency: an Endocrine Society clinical practice guideline. JCEM. 2010; 96(7):1911-30. Performed at: - [facility] [id number] Theater Set Production Designer: Aixa Hodge MD, Phone: [phone] Note: Persistent reduction for 3 months or more in an eGFR <60 mL/min/1.73 m2 defines CKD. Patients with eGFR values >/=60 mL/min/1.73 m2 may also have CKD if evidence of persistent proteinuria is present. The original MDRD equation for estimated GFR is not valid for patients less than 18 years of age. Additional information may be found at www.kdoqi.org. 30 Reference Guidelines*: Desirable: ........... < 200 mg/dL Borderline High: ..... 200-239 mg/dL High: ................ >=240 mg/dL * The National Cholesterol Education Program (NCEP) 31 Reference Guidelines*: Normal: ............. < 150 mg/dL Borderline High: .... 150-199 mg/dL High: ............... 200-499 mg/dL Very High: .......... > 500 mg/dL * Source: National Cholesterol Education Program (NCEP) 32 Reference Guidelines*: Low HDL: ..... < 40 mg/dL Normal: ..... 40-60 mg/dL Desirable: ... > 60 mg/dL *The National Cholesterol Education Program(NCEP) 33 Reference Guidelines*: Optimal:........... <100 mg/dL Near Optimal....... 100-129 mg/dL Borderline High.... 130-159 mg/dL High............... 160-189 mg/dL Very High.......... >=190 mg/dL * Source: National Cholesterol Education Program (NCEP) 34 ESCHERICHIA COLI 35 > 100,000 CFU/mL 36 50,000 - 100,000 CFU/mL 37 HEART PALP/CP 38 Note: Persistent reduction for 3 months or more in an eGFR <60 mL/min/1.73 m2 defines CKD. Patients with eGFR values >/=60 mL/min/1.73 m2 may also have CKD if evidence of persistent proteinuria is present. The original MDRD equation for estimated GFR is not valid for patients less than 18 years of age. Additional information may be found at www.kdoqi.org. 39 0.0 - 0.045 ng/mL: Normal 0.046 - 0.5 ng/mL: Suggestive 0.6 - 1.5 ng/mL: Consistent 40 06/25/166: NEUT% previously reported as: 59.4 % Amended result called to: [] - 06/25/16 at 0046 06/25/16 0046: LYMPH % previously reported as: 31.2 % Amended result called to: [] - 06/25/16 at 0046 06/25/16 0046: MONO % previously reported as: 8.7 % Amended result called to: [] - 06/25/16 at 0046 06/25/16 0046: EO% previously reported as: 0.6 % Amended result called to: [] - 06/25/16 at 0046 06/25/16 0046: BAS% previously reported as: 0.1 % Amended result called to: [] - 06/25/16 at 0046 41 I48.0 42 Note: Persistent reduction for 3 months or more in an eGFR <60 mL/min/1.73 m2 defines CKD. Patients with eGFR values >/=60 mL/min/1.73 m2 may also have CKD if evidence of persistent proteinuria is present. The original MDRD equation for estimated GFR is not valid for patients less than 18 years of age. Additional information may be found at www.kdoqi.org. 43 Reference Guidelines*: Desirable: ........... < 200 mg/dL Borderline High: ..... 200-239 mg/dL High: ................ >=240 mg/dL * The National Cholesterol Education Program (NCEP) 44 Reference Guidelines*: Normal: ............. < 150 mg/dL Borderline High: .... 150-199 mg/dL High: ............... 200-499 mg/dL Very High: .......... > 500 mg/dL * Source: National Cholesterol Education Program (NCEP) 45 Reference Guidelines*: Low HDL: ..... < 40 mg/dL Normal: ..... 40-60 mg/dL Desirable: ... > 60 mg/dL *The National Cholesterol Education Program(NCEP) 46 Reference Guidelines*: Optimal:........... <100 mg/dL Near Optimal....... 100-129 mg/dL Borderline High.... 130-159 mg/dL High............... 160-189 mg/dL Very High.......... >=190 mg/dL * Source: National Cholesterol Education Program (NCEP) 47 Note: Persistent reduction for 3 months or more in an eGFR <60 mL/min/1.73 m2 defines CKD. Patients with eGFR values >/=60 mL/min/1.73 m2 may also have CKD if evidence of persistent proteinuria is present. The original MDRD equation for estimated GFR is not valid for patients less than 18 years of age. Additional information may be found at www.kdoqi.org. 48 SEE RESULT BELOW Name: ROMELIA MAGDALENO Nico : [address]: Lj Cantu MD Acct: [id number] Unit: [id number] AGE: 69 Location: [facility] Re04/21/15 SEX: F Status: REG REF SPEC: [id number] LUIS ALBERTO: 04/21/15-[address] [facility] [address]: Lj Cantu MD REQ: [id number] RECD: 04/21/15 STATUS: COY MOBLEY DR: Breanne MCCURDY _ SOURCE: URINE [facility]: ORDERED: Urine Culture Procedure Result Verified Site Urine Culture Final 04/23/15- 0912 ML Organism 1 ESCHERICHIA COLI [place] Count >100,000 (Many) CFU/ML 1. ESCHERICHIA COLI M.I.C. RX --------- ------ Ampicillin >=32 R Cefazolin >=64 R Cefepime <=1 S Ceftriaxone 32 I Ciprofloxacin >=4 R Gentamicin >=16 R Levofloxacin >=8 R Meropenem <=0.25 S Nitrofurantoin <=16 S Tetracycline >=16 R Pipercillin/Tazobactam 8 S Trimethoprim/Sulfamethoxazole >=320 R Amoxicillin/Clavulanic Acid >=32 R Aztreonam 16 I Contact the Microbiology Department for any additional antibiotic reporting. * ML - MAIN LAB ([facility]) . END OF REPORT * ML=Testing performed at Main Lab DEPARTMENT OF PATHOLOGY, [address], [place], [place] [address] Surjit Quigley M.D. Director [facility] # [id number] 49 COLONY COUNT ! 20,000-30,000 CFU/ml Organism 1 ! MIXED URETHRAL LA NENA 50 Note: Persistent reduction for 3 months or more in an eGFR <60 mL/min/1.73 m2 defines CKD. Patients with eGFR values >/=60 mL/min/1.73 m2 may also have CKD if evidence of persistent proteinuria is present. The original MDRD equation for estimated GFR is not valid for patients less than 18 years of age. Additional information may be found at www.kdoqi.org. 51 COLONY COUNT ! 50,000 - 60,000 CFU/ml Organism 1 ! MIXED URETHRAL LA NENA 52 Reference Range and Interpretation: TnI (ng/mL) Interpretation Less Than 0.06 ng/mL Not supportive of diagnosis of AK 0.06 - 0.50 ng/mL Indeterminate: suggest serial studies if clinically indicated. Greater than 0.5 ng/mL Consistent with diagnosis of AK 53 Because ethnic data is not always readily [...] Kidney damage with mild decrease in GFR 60- 89 3 Moderate decrease in GFR 30-59 4 Severe decrease in GFR 15-29 5 Kidney failure <15 (or dialysis) 54 The CA 125 assay is not recommended as a cancer screening test, but rather as an aid in monitoring response to therapy for patients with epithelial ovarian cancer. Serial testing for patients CA 125 assay values should be used in conjunction with other methods used for screening ovarian cancer. Assayed by Chemiluminescence Microparticle Immunoassay on the [employer] Access2. The values obtained with different assay methods or kits cannot be used interchangeably. 55 Because ethnic data is not always readily [...] Kidney damage with mild decrease in GFR 60- 89 3 Moderate decrease in GFR 30-59 4 Severe decrease in GFR 15-29 5 Kidney failure <15 (or dialysis) 56 HDL Interpretation: Undesirable: High Risk: Less than 40 mg/dL Desirable: Low Risk: Greater than 60 mg/dL 57 LDL Interpretation: Low Risk Optimal Level: LDL Less than 100 mg/dL Near or Above Optimal: LDL 100-129 mg/dL Borderline High Risk: LDL 130-159 mg/dL High Risk : LDL 160-189 mg/dL Very High Risk: LDL Greater than 189 mg/dL 58 -- REFERENCE VALUE -- 25-HYDROXY D TOTAL (D2+D3) Optimum levels in the normal population are 25-80 Test Performed by: [address] [address] Patient Escort: Fernando Cardoso III, M.D. 59 CHOLESTEROL INTERPRETATION: Desirable: Less than 200 MG/DL Borderline-High Risk: 200-239 MG/DL High-Risk: 240 MG/DL and over 60 HDL INTERPRETATION: Undesirable: High Risk: Less than 40 MG/DL Desirable: Low Risk: Greater than 60 MG/DL 61 LDL INTERPRETATION: Low Risk Optimal Level: LDL Less than 100 MG/DL Near or Above Optimal: LDL 100-129 MG/DL Borderline High Risk: LDL 130-159 MG/DL High Risk : LDL 160-189 MG/DL Very High Risk: LDL Greater than 189 MG/DL 62 Anion gap measurement may be of limited value in the presence of any alkalosis, especially in a combined acid base disorder. . 63 Because ethnic data is not always readily [...] Kidney damage with mild decrease in GFR 60- 89 3 Moderate decrease in GFR 30-59 4 Severe decrease in GFR 15-29 5 Kidney failure <15 (or dialysis) 64 Anion gap measurement may be of limited value in the presence of any alkalosis, especially in a combined acid base disorder. . 65 Because ethnic data is not always readily [...] Kidney damage with mild decrease in GFR 60- 89 3 Moderate decrease in GFR 30-59 4 Severe decrease in GFR 15-29 5 Kidney failure <15 (or dialysis) 66 CHOLESTEROL INTERPRETATION: Desirable: Less than 200 MG/DL Borderline-High Risk: 200-239 MG/DL High-Risk: 240 MG/DL and over 67 HDL INTERPRETATION: Undesirable: High Risk: Less than 40 MG/DL Desirable: Low Risk: Greater than 60 MG/DL 68 LDL INTERPRETATION: Low Risk Optimal Level: LDL Less than 100 MG/DL Near or Above Optimal: LDL 100-129 MG/DL Borderline High Risk: LDL 130-159 MG/DL High Risk : LDL 160-189 MG/DL Very High Risk: LDL Greater than 189 MG/DL 69 A metabolite of Naproxen, O-desmethylnaproxen, has been shown to interfere with the [place] method for measuring total bilirubin. Samples from patients who have taken Naproxen have shown spurious elevation in total bilirubin levels. 70 Please note updated reference range, effective 03/24/10 71 -- REFERENCE VALUE -- 25-HYDROXY D TOTAL (D2+D3) Optimum levels in the normal population are 25-80 Test Performed by: [place] [address] Patient Escort: Fernando Cardoso III, M.D. 72 Test Performed by: [facility] Dpt of Lab Med and Pathology [address] [place] [address] Patient Escort: Fernando Cardoso III, M.D. 73 -- REFERENCE VALUE -- 25-HYDROXY D TOTAL (D2+D3) Optimum levels in the normal population are 25-80 Test Performed by: [facility] Dpt of Lab Med and Pathology [address] [place] [address] Patient Escort: Fernando Cardoso III, M.D. Procedures Date Code Description Status 02/11/2019 62529 EKG-Tracing And Report Completed 05/14/2018 48457 EKG-Tracing And Report Completed 04/26/2018 [id number] Mammogram Completed 02/13/2018 60606 Radiology, Knee 3 Views Completed 02/13/2018 95176 Radiology, Knee 3 Views Completed 02/13/201877192 Asp./Injection major joint Completed 02/04/2018 32144 [employer] Heart Rhythm Completed Derived Data 02/04/2018 38724 EKG-Tracing And Report Completed 05/23/2017 96659 EKG-Tracing And Report Completed 05/04/2017 [id number] Colonoscopy Completed 03/27/2017 11089 Injection:Tendon Sheath,Lig. Cyst Completed 02/13/2017 25210 [employer] Heart Rhythm Completed Derived Data 02/13/2017 86453 [employer] Heart Rhythm Completed Derived Data 07/31/2016 19411 [employer] Heart Rhythm Completed Derived Data 07/06/2016 34657 EKG-Tracing And Report Completed 07/03/2016 99285 Event Monitor Inter/Review Only Completed 06/05/2016 [id number] Mammogram Completed 05/05/2016 94724 EKG-Tracing And Report Completed 05/01/2016 21848 Event Monitor Inter/Review Only Completed 06/02/2015 [id number] Mammogram Completed 05/26/2015 22324 Stress Test Interpre And Report Only Completed 05/26/2015 64794 Stress Test Physician Super Only Completed 05/26/2015 50193 Stress Test Physician Super Only Completed 05/20/2015 06737 EKG-Tracing And Report Completed 05/13/2015 11947 Holter Monitor 24HR Inter/Report Completed 02/23/2015 62969 Injection:Tendon Sheath,Lig. Cyst Completed 02/23/2015 07356 Radiology, Hand: Minimum Three Views Completed 02/23/2015 81165 Radiology, Hand: Minimum Three Views Completed 12/25/2013 56631 Colonoscopy Completed 05/29/2013 71442 Holter Monitor 24HR Inter/Report Completed 05/29/2013 70114 EKG-Tracing And Report Completed 03/29/2010 60738 Asp/Injection small joint/bursa (ie-fingers,toes) Completed 09/26/2005 08593 Asp/Injection small joint/bursa (ie-fingers,toes) Completed 03/16/2003 14995 Destruct-Skin Tags/Lesions-Local Anesthesia - First Completed Lesion 01/01/2001 44852 I & D Of Abscess/Simple Or Single Completed 08/30/1999 71834 EKG-Tracing And Report Completed 07/20/1999 83701 Cholecystectomy W. Cholaniography Completed 02/05/1998 36483 Hysterectomy Vaginal, For Uterus <250 Grams Completed 01/26/1998 88244 Incision Thrombosed Hemorrhoid External Completed 07/16/1996 63359 Endometrial Biopsy Completed 05/25/1993 88515 Biopsy Of Cervix Completed Encounters Type Date Location Provider Dx Diagnosis Office Visit 02/11/2019 Cardiology Office Ajit Pedroza MD I48.0 Paroxysmal atrial 9:15a fibrillation Z79.01 [facility] (current) use of anticoagulants Z95.818 Presence of other cardiac implants and grafts Office Visit 05/14/2018 11:45a Cardiology Office Ajit Pedroza, I48.0 Paroxysmal atrial MD fibrillation Z79.01 [facility] (current) use of anticoagulants I44.7 Left bundle-branch block, unspecified Z95.9 Presence of cardiac and vascular implant and graft, unsp Office Visit 04/22/2018 10:15a [facility] [place], K30 Functional Office Breanne, RPAC dyspepsia R55 Syncope and collapse I48.0 Paroxysmal atrial fibrillation Z95.818 Presence of other cardiac implants and grafts I87.2 Venous insufficiency (chronic) (peripheral) Z12.31 Encntr screen mammogram for malignant neoplasm of breast Office Visit 03/14/2018 1:00p Orthopaedic Office David M76.51 Dylan Borja M.D. tendinitis, right knee Office Visit 02/21/2018 2:15p Orthopaedic Office Bria, M25.561 Pain in right Dorothy S., knee RPAC M17.11 Unilateral primary osteoarthritis, right knee M25.461 Effusion, right knee Office Visit 02/13/2018 1:15p Orthopaedic Office Digna Fraserony M25.561 Pain in S., RPAC right knee M17.11 Unilateral primary osteoarthritis, right knee Office Visit 02/11/2018 2:30p [facility] [place] N39.0 Urinary tract Office Breanne, RPAC infection, site not specified M25.561 Pain in right knee Office Visit 02/04/2018 9:15a Cardiology Office Ajit Pedroza, I48.0 Paroxysmal atrial MD fibrillation Office Visit 01/22/2018 9:45a [facility] [place] I48.0 Paroxysmal atrial Office Breanne, fibrillation [facility] K12.1 Other forms of stomatitis Office Visit 01/15/2018 9:45a [facility] [place], J06.9 Acute upper Office Breanne, RPAC respiratory infection, unspecified Office Visit 05/23/2017 9:45a Cardiology Ajit Pedroza MD I48.0 Paroxysmal atrial Office fibrillation I49.3 Ventricular premature depolarization Z95.818 Presence of other cardiac implants and grafts Office Visit 05/21/2017 9:00a [facility] [place] N39.0 Urinary tract Office Breanne, RPAC infection, site not specified Z23 Encounter for immunization K58.0 Irritable bowel syndrome with diarrhea Office Visit 02/14/2017 9:30a Primary Care Breanne Rhoades, B35.1 Tinea unguium Office [facility] K60.2 Anal fissure, unspecified Office Visit 02/13/2017 8:50a Cardiology Areli I49.3 Ventricular Office Marlyss B., premature PA depolarization I48.0 Paroxysmal atrial fibrillation I47.2 Ventricular tachycardia I10 Essential (primary) hypertension Office Visit 07/31/2016 11:20a Cardiology Office Ajit Pedroza MD R42 Dizziness and giddiness R00.2 Palpitations I48.0 Paroxysmal atrial fibrillation I47.2 Ventricular tachycardia I10 Essential (primary) hypertension Z95.818 Presence of other cardiac implants and grafts Office Visit 07/06/2016 1:00p Cardiology Office Ajit Pedroza, I48.0 Paroxysmal atrial MD fibrillation I47.2 Ventricular tachycardia R42 Dizziness and giddiness I10 Essential (primary) hypertension Office Visit 07/03/2016 11:15a [facility] [place], I48.0 Paroxysmal atrial Office Breanne [facility] fibrillation I47.9 Paroxysmal tachycardia, unspecified Office Visit 05/30/2016 11:00a Cardiology Office Ajit Pedroza, I48.0 Paroxysmal atrial MD fibrillation I49.1 Atrial premature depolarization I10 Essential (primary) hypertension R42 Dizziness and giddiness E66.09 Other obesity due to excess calories Office Visit 05/05/2016 9:30a Cardiology Office Ajit Pedroza, I48.0 Paroxysmal atrial MD fibrillation I49.1 Atrial premature depolarization I10 Essential (primary) hypertension Office Visit 04/21/2016 9:00a [facility] [place], I10 Essential ( primary) Office Breanne [facility] hypertension I48.0 Paroxysmal atrial fibrillation Office Visit 06/14/2015 10:15a [facility] [place], I49.1 Atrial premature Office Breanne [facility] depolarization F41.9 Anxiety disorder, unspecified I10 Essential (primary) hypertension Z23 Encounter for immunization Office Visit 05/20/2015 10:15a [facility] [place], R42 Dizziness and Office Breanne [facility] giddiness I49.9 Cardiac arrhythmia, unspecified Office Visit 05/13/2015 10:45a [facility] [place], I10 Essential ( primary) Office Breanne [facility] hypertension E78.2 Mixed hyperlipidemia R42 Dizziness and giddiness Office Visit 02/23/2015 10:45a Orthopaedic Office Dorothy Fraser 727.03 Trigger Finger S., [facility] Acquired 719.44 Pain Joint Hand Plan of Treatment Future Appointment(s):04/22/2019 10:30 am - Ajit Pedroza MD at Cardiology Jarrlf4902/11/2019 - Ajit Pedroza MDI48.0 Paroxysmal atrial fibrillationComments:S /p Afib cryo ablation. Doing well now. Will be followed with Dr Ji in May. [place]. On Eliquis now due to concerns of Xarelto related AKIZ79.01 [facility] (current) use of anticoagulantsComments:On low dose Eliquis due to renal impairment recently. She was placed on a small dose Lasix due to intermittent edema. She is pending labs in a week or two. Dose to be adjusted renally depending on results. Has appt with PCP on the . Currently has been in sinus so low risk for CVA even if somewhat vbupbcjinhtbmxQ44.818 Presence of other cardiac implants and graftsComments:No issues with device. Transmissions set to Dr Ji's office. Copies of reports we received showed no significant Afib o other dysrhythmiasAllNew Medication:Integra F 125-1 mg - one dailyFollow up:3 months
--- OUTSIDE RECORDS SUMMARY | 2019-03-09 15:42 | XMS REPORT | Continuity of Care Document ---
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 Unavailable [facility] Primary [facility] Physician Unavailable Payers Date Identification Numbers Payment Provider Subscriber Effective: 2017 Policy Number: [id number] [employer] Romelia Magdaleno PayID: [id number] [address] [address] [place] [address] Problems Active Problems Provider Date Atrophic vaginitis Breanne Rhoades [facility] Onset: 12/28/2011 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, (R) side Hyperlipidemia [facility]oad[facility] Onset: 12/28/2011 Benign essential hypertension Breanne Rhoades [facility] Onset: 12/28/2011 Irritable bowel syndrome Breanne Rhoades [facility] Onset: 12/28/2011 Atrial tachycardia Breanne Rhoades [facility] Onset: 05/13/2015 Note: ablation 1999 Paroxysmal atrial fibrillation Breanne Rhoades [facility] Onset: 05/13/2015 Note: Cervical arthritis Breanne Rhoades [facility] Onset: 05/13/2015 Note: mild Colitis Breanne Rhoades [facility] Onset: 05/25/2017 Note: lymphocytic, bx 2017 Urinary tract infectious disease [facility]oad[facility] Onset: 02/11/2018 Knee pain Breanne Rhoades [facility] Onset: 02/11/2018 Patellar tendonitis Pompo, Jonh, M.D. Onset: 03/14/2018 Resolved Problems Acute upper respiratory infection, Breanne Rhoades [facility] Onset: 01/15/2018 unspecified Resolved: 02/13/2018 Ulcerative stomatitis Breanne Rhoades [facility] Onset: 01/22/2018 Resolved: 02/13/2018 Family History Date Family Member(s) Observation Comments General Heart Attack Father Heart Disease Father due to [place] () Mother Heart Disease First Brother Heart Disease First Brother Cancer thyroid Second Brother Pancreatic Cancer Social History Type Date Description Comments Sex Unknown Lives With Oscar Spangler Patient is on a low sodium diet [...] mouth every day 300tabs Jona Hylton, 2012 M.D. Tablets Estrace insert 1 255mg Jona Hylton, 03/11/2012 0.1mg/GM applicatorful M.DChristian Cream vaginally twice a week Pravastatin Sodium Take 1 Tablet By 90tabs Jona Hylton, 03/11/2012 Mouth Every Day M.DChristian 40mg Tablets Vitamin D3 one cap q [...] - 50mg Tablets hours as needed for M.DChristian 04/22/2018 pain Amoxicillin 1 cap by mouth 30caps N39.0 Warner, 02/11/2018 - 500mg Capsules three times a day Tamia Tenorio 04/09/2018 Xarelto 1 tab by mouth at [facility], 01/16/2018 - 20mg Tablets largest meal. MD Bird Unknown Ipratropium Dyke 2 sprays to each 30ml J06.9 Warner, 01/15/2018 - 0.03% nostril twice a day Tamia Tenorio 04/22/2018 Solution Amoxicillin 1 tab by mouth 20tabs J06.9 Warner, 01/15/2018 - 875mg Tablets twice a day Tamia Tenorio 01/26/2018 Budesonide 3 caps every day, [place], 06/03/2017 - 3mg Caps DR Omar cintron as directed Rajesh JAY 01/15/2018 Sulfamethoxazole/Trimetho take one tablet by 20tacarter Hylton, 05/23/2017 - prim DS mouth twice a [...] 03/19/2017 - 250mg Tablets Mouth Every Day Breanne, Alayna [facility] Lamisil 1 tab by mouth 90tabs B35.1 Warner, 02/14/2017 - 250mg Tablets every day Tamia Tenorio Unknown Metoprolol Succinate ER 1 by mouth every 90tabs I49.3 Ajit Pedroza, 2016 - 25mg night 02/11/2019 Tablets ER 24HR Magnesium Oxide -MG one by mouth daily 30caps I49.3 Isaac, 02/13/2017 - Supplement Ernie Muse, Unknown 400mg Capsules Tamia, [facility] Metoprolol Tartrate 1/2 tab by mouth 180tabs I49.3 Ajit Pedroza, 2016 - 25mg twice daily 02/13/2017 Tablets Multaq take one tablet by Page, 06/26/2016 - 400mg Tablets mouth twice a day MD Bird 06/12/2018 Eliquis 1 tab by mouth 180tabs Isaac, 05/30/2016 - 5mg Tablets twice a day Ernie Muse, 07/03/2016 Tamia, [facility] Omeprazole take 1 capsule by 90capnimo Hylton, 05/12/2016 - 20mg Capsules DR lisa every day Tamia Tenorio 04/15/2018 Aspirin Ec Lo-Dose 1 by mouth every Ajit Pedroza, 05/05/2016 - 81mg Tablets day 05/30/2016 DR Chase 1 by mouth every 90tabs Ajit Pedroza, 05/05/2016 - 10mg Tablets day 07/03/2016 Esomeprazole Magnesium 1 by mouth twice a 90caps Garth Dalal 04/21/2016 - 40mg day E., DO 05/12/2016 Capsules Carvedilol 1 by mouth twice a 60tabs Garth [...] 04/21/2016 Tablets Hydrochlorothiazide 1 cap by mouth 90capGarth Burks 05/27/2015 - 12.5mg every day as needed E., DO 04/21/2016 Capsules lower ext edema Fenofibrate Micronized 1 cap by mouth 90bonilla Garcia, 04/01/2014 - 134mg every day MD Nelly 06/14/2015 Capsules [place] 50 1 by mouth every 60caps Jose, [...] then stop Omeprazole 1 cap by mouth 90bonilla Garcia, 06/12/2013 - 40mg Capsules DR every day MD Nelly 04/21/2016 Aspirin Adult Low 2 tabs by mouth Jose, 03/11/2012 - Strength every day MD Nelly 05/05/2016 81mg Tablets Furosemide 1 po qd prn, rare 90tabs Jose, 05/24/2011 - 20mg Tablets use MD Nelly 06/14/2015 Fenofibrate Micronized Take 1 Capsule By 90capnimo Hylton, - 134mg Mouth Every Day Tamia Tenorio Unknown Capsules Budesonide 1 cap by mouth [place], - 3mg Caps Part every day Rajesh [...] Cefuroxime Axetil Unknown - 250mg Tablets 05/13/2015 [place] 50 1 by mouth every 60caps Jose, - 1000mg Capsules day MD Nelly 05/13/2015 Ferrous Gluconate 1 by mouth every Jose, - 325(36Fe) mg day MD Nelly 05/13/2015 Tablets Ciprofloxacin HCL 1 by mouth twice a 14tabs Jose, - 500mg Tablets day MD Nelly 05/13/2015 Estrace Unknown - 0.1mg/GM Cream 05/13/2015 Nyamyc Unknown - [id number]/GM Powder 05/13/2015 Sulfamethoxazole-Trimetho Unknown - prim 05/13/2015 [...] acetate Dorothy Fraser, 02/13/2018 (Depomedrol) 80mg injection [facility] Injection Betamethasone Acetate & Sodium Dorothy Fraser, 03/27/2017 Phosphate 3 MG Of Each [facility] Injection Depo-Medrol 20mg Dorothy Fraser, 02/23/2015 Injection [facility] Immunizations CPT Code Status Date Vaccine Reaction Lot # [id number] Given 06/03/2018 Influenza Virus Vaccine, Quadrivalent, 36 none [id number] Mos+, .5ML 45522 Given 05/21/2017 Influenza Virus Vaccine Quadrivalent Iiv4 NONE [id number] Split Preser Free Id Q2038 Given 05/29/2016 Influenza Vaccine (Fluzone) Age 3 And [id number] Older Q2038 Given 06/14/2015 Influenza Vaccine (Fluzone) Age 3 And [id number] Older 16950 Given 06/14/2015 Pneumococcal Conjugate Vaccine 13 Valent [id number] For Intramuscular Use 37875 Given 05/29/2014 flu vaccination 82445 Given 06/23/2013 flu vaccination 98527 Given 07/11/2012 Zoster Vaccine Live Injection 50532 Given 07/03/2012 Tdap injection 17172 Given 05/31/2012 flu vaccination 79474 Given 05/24/2011 flu vaccination 47139 Given 05/13/2010 flu vaccination 80623 Given 07/13/2008 Pneumovax Injection 43843 Given 06/28/2001 Pneumovax Injection 08648 Given 06/28/2001 flu vaccination Vital Signs Date Vital Result Comment 02/11/2019 9:17am BP Systolic Sitting Left Arm 120 mmHg BP Diastolic Sitting Left Arm 60 mmHg Heart Rate 70 /min Respiratory Rate 18 /min Height 67.99 inches 5'7.99" per records Weight 212.00 lb BMI (Body Mass Index) 32.2 kg/m2 BSA (Body Surface Area) 2.09 m2 [place] body weight in kilograms 63 kg O2 % BldC Oximetry 97 % 06/03/2018 12:53pm BP Systolic 144 mmHg BP Diastolic 76 mmHg Body Temperature 97.3 F Heart Rate 81 /min Respiratory Rate 18 /min Height 67.99 inches 5'7.99" per records Weight 227.25 lb BMI (Body Mass Index) 34.6 kg/m2 BSA (Body Surface Area) 2.16 m2 [place] body weight in kilograms 63 kg O2 % BldC Oximetry 98 % 05/14/2018 11:47am BP Systolic Sitting Left Arm 120 mmHg BP Diastolic Sitting Left Arm 65 mmHg Heart Rate 72 /min Respiratory Rate 16 /min Height 67.99 inches 5'7.99" per records Weight 226.00 lb BMI (Body Mass Index) 34.4 kg/m2 BSA (Body Surface Area) 2.15 m2 [place] body weight in kilograms 63 kg O2 % BldC Oximetry 98 % 04/22/2018 10:59am BP Systolic Sitting Left Arm 120 mmHg BP Diastolic Sitting Left Arm 62 mmHg Body Temperature 98.4 F Heart Rate 69 /min Respiratory Rate 18 /min Height 67.99 inches 5'7.99" per records Weight 227.00 lb BMI (Body Mass Index) 34.5 kg/m2 BSA (Body Surface Area) 2.16 m2 [place] body weight in kilograms 63 kg O2 % BldC Oximetry 98 % Ra 03/14/2018 1:02pm BP Systolic Sitting Left Arm 133 mmHg BP Diastolic Sitting Left Arm 78 mmHg Body Temperature 97.4 F Heart Rate 69 /min Respiratory Rate 18 /min Height 67.99 inches 5'7.99" per records Weight 228.00 lb BMI (Body Mass Index) 34.7 kg/m2 BSA (Body Surface Area) 2.16 m2 [place] body weight in kilograms 63 kg O2 % BldC Oximetry 98 % 02/21/2018 2:18pm BP Systolic Sitting Left Arm 132 mmHg BP Diastolic Sitting Left Arm 65 mmHg Body Temperature 98.5 F Heart Rate 71 /min Respiratory Rate 17 /min Height 67.99 inches 5'7.99" per records [place] body weight in kilograms 63 kg O2 % BldC Oximetry 99 % 02/13/2018 1:15pm BP Systolic Sitting Left Arm 117 mmHg BP Diastolic Sitting Left Arm 75 mmHg Body Temperature 98.0 F Heart Rate 62 /min Respiratory Rate 18 /min Height 67.99 inches 5'7.99" per records Weight 232.00 lb BMI (Body Mass Index) 35.3 kg/m2 BSA (Body Surface Area) 2.18 m2 [place] body weight in kilograms 63 kg O2 % BldC Oximetry 98 % 02/11/2018 2:35pm BP Systolic Sitting Right Arm 128 mmHg BP Diastolic Sitting Right Arm 68 mmHg Body Temperature 98.7 F Heart Rate 65 /min ra Respiratory Rate 18 /min Height 67.99 inches 5'7.99" Weight 232.00 lb BMI (Body Mass Index) 35.3 kg/m2 BSA (Body Surface Area) 2.18 m2 [place] body weight in kilograms 63 kg O2 [...] kg/m2 BSA (Body Surface Area) 2.19 m2 [place] body weight in kilograms 66 kg 01/22/2018 10:07am BP Systolic Sitting Right Arm 118 mmHg BP Diastolic Sitting Right Arm 72 mmHg Heart Rate 73 /min reg Respiratory Rate 24 /min Height 69 inches 5'9" Weight 228.00 lb BMI (Body Mass Index) 33.7 kg/m2 BSA (Body Surface Area) 2.18 m2 [place] body weight in kilograms 66 kg O2 % BldC Oximetry 98 % ra 01/15/2018 10:08am BP Systolic Sitting Right Arm 140 mmHg BP Diastolic Sitting Right Arm 72 mmHg Body Temperature 99.5 F Heart Rate 71 /min reg Respiratory Rate 24 /min Height 69 inches 5'9" Weight 228.00 lb BMI (Body Mass Index) 33.7 kg/m2 BSA (Body Surface Area) 2.18 m2 [place] body weight in kilograms 66 kg O2 % BldC Oximetry 97 % 05/23/2017 9:44am BP Systolic Sitting Left Arm 104 mmHg BP Diastolic Sitting Left Arm 77 mmHg Heart Rate 56 /min Respiratory Rate 16 /min Height 69 inches 5'9" Weight 222.00 lb BMI (Body Mass Index) 32.8 kg/m2 BSA (Body Surface Area) 2.16 m2 [place] body weight in kilograms 66 kg 05/21/2017 8:57am BP Systolic Sitting Right Arm 118 mmHg BP Diastolic Sitting Right Arm 72 mmHg Heart Rate 61 /min Height 69 inches 5'9" Weight 223.00 lb BMI (Body Mass Index) 32.9 kg/m2 BSA (Body Surface Area) 2.16 m2 [place] body weight in kilograms 66 kg O2 % BldC Oximetry 98 % ra 03/27/2017 9:15am BP Systolic Sitting Right Arm 128 mmHg BP Diastolic Sitting Right Arm 80 mmHg Height 69 inches 5'9" Weight 226.00 lb BMI (Body Mass Index) 33.4 kg/m2 BSA (Body Surface Area) 2.18 m2 [place] body weight in kilograms 66 kg 02/14/2017 9:25am BP Systolic Sitting Right Arm 122 mmHg BP Diastolic Sitting Right Arm 72 mmHg Heart Rate 68 /min Height 69 inches 5'9" Weight 224.25 lb BMI (Body Mass Index) 33.1 kg/m2 BSA (Body Surface Area) 2.17 m2 [place] body weight in kilograms 66 kg O2 % BldC Oximetry 97 % 02/13/2017 8:52am BP Systolic Sitting Right Arm 124 mmHg BP Diastolic Sitting Right Arm 76 mmHg Heart Rate 64 /min Respiratory Rate 14 /min Height 69 inches 5'9" Weight 224.00 lb BMI (Body Mass Index) 33.1 kg/m2 BSA (Body Surface Area) 2.17 m2 [place] body weight in kilograms 66 kg 07/31/2016 [...] 6.5-7.5 Ua Blood Negative Negative Ua Specific Jean 1.015 1.010-1.030 Ua Ketones Negative Negative Ua Bilirubin Negative Negative Ua Glucose Negative Negative Urinalysis With 05/07/2018 [facility] Urine Color YELLOW Yellow [address] [place] [address] [phone] Urine Clarity SL CLOUDY Clear Urine Glucose - Dipstick NEGATIVE mg/dL Negative Urine Bilirubin - Dipstick NEGATIVE Negative Urine Ketone TRACE mg/dL High Negative Urine Specific Jean 1.020 N 1.010-1.030 Urine Blood TRACE Negative [...] CAT <SEE NOTE> 2 Culture If 05/07/2018 [facility] Culture If CULTURE TO [address] Indicated [address] Indicated Comment FOLLO [place] [address] NOTE> [phone] Source: URINE, CLEAN CAT <SEE NOTE> 4 Urine Culture 05/07/2018 [facility] Urine Culture ESCHERICHIA COLI Abnormal [address] [place] [address] [phone] Quantity > 100,000 CFU/mL 6 Urine Culture URETHRAL LA NENA Quantity 10,000 - 50,000 <SEE NOTE> 7 Escherichia Coli 05/07/2018 [facility] Nitrofurantoin <=[address] [place] [address] [phone] Trimethoprim/Sulfamethoxazole >=320 R Ampicillin <=2 S Cefazolin <=4 S Ampicillin/Sulbactam <=2 S Ciprofloxacin <=0.25 S Piperacillin/Tazobactam <=4 S Ceftazidime <=1 S Ceftriaxone <=1 S Cefepime <=1 S Levofloxacin <=0.12 S Imipenem <=0.25 S Gentamicin <=1 S Tobramycin <=1 S Laboratory 04/22/2018 [facility] Vitamin 33.5 30.0-100.0 8, 9 test finding [address] D,25-Hydroxy ng/[place] [address] [phone] CBS 04/22/2018 [facility] White Blood 7.3 K/uL N 3.1-10.7 W/Automated [address] [place] [address] [phone] Red Blood Count 4.45 M/uL N 3.90-5.40 [...] 40.4-72.8 Lymph % 35.3 % N 20.0-42.0 Stone % 10.4 % N 4.3-13.2 Eo% 1.0 % N 0.0-6.6 Bas% 0.1 % N 0.0-1.1 Neut# 3.87 K/uL N 1.8-7.0 Lymph # 2.57 K/uL N 1.0-4.0 Stone # 0.76 K/uL N 0.3-0.9 Eos # 0.07 K/uL N 0.0-0.5 Baso # 0.01 K/uL N 0.0-0.1 Comprehensive Metabolic 04/22/2018 [facility] Glucose 77 mg/dL N 74-106 Panel [address] [place] [address] [phone] BUN 13 mg/dL N 7-18 Creatinine 0.9 [...] U/L Low 45-117 LDL Cholesterol Profile 04/22/2018 [facility] Cholesterol 159 mg/dL <200 12 [address] [place] [address] [phone] Triglycerides 88 mg/dL <150 13 HDL Cholesterol 87 mg/dL >40 14 LDL-Cholesterol 54 mg/dL < 100 15 Ua RFX Micro & Culture 03/01/2018 [facility] Urine Color YELLOW Yellow 16 II [address] [place] [address] [phone] Urine Clarity CLEAR Clear Urine Glucose - Dipstick NEGATIVE mg/dL Negative Urine Bilirubin - Dipstick NEGATIVE Negative Urine Ketone NEGATIVE mg/dL Negative Urine Specific Jean 1.010 N 1.010-1.030 Urine Blood NEGATIVE Negative Urine PH 6.0 Low 6.5-7.5 Urine Protein - Dipstick NEGATIVE mg/dL Negative Urine Urobilinogen - Dipstick 0.2 E.U./dL N 0.2-1.0 Urine Nitrite - Dipstick NEGATIVE Negative Urine Leuk Esterase NEGATIVE Negative Source: URINE, CLEAN CAT <SEE NOTE> 17 Urine Culture 02/11/2018 [facility] Urine ESCHERICHIA COLI Abnormal [address] [place] [address] [phone] Quantity > 100,000 CFU/mL 19 Urine Culture URETHRAL LA NENA Quantity 10,000 - 100,000 <SEE NOTE> 20 Escherichia Coli 02/11/2018 [facility] Nitrofurantoin <=[address] [place] [address] [phone] Trimethoprim/Sulfamethoxazole <=20 S Ampicillin 8 S Cefazolin [...] 6.5-7.5 Ua Blood negative Negative Ua Specific Jean 1.015 1.010-1.030 Ua Ketones negative Negative Ua Bilirubin negative Negative Ua Glucose negative Negative TSH Reflex FT4 02/04/2018 [facility] Thyroid Stim 0.97 uIU/mL N 0.30-4.20 21 And/Or FT3 [address] [place] [address] [phone] Reflex add FT3? Y Reflex add FT4? Y Magnesium 02/04/2018 [facility] Magnesium 2.0 mg/dL N 1.8-2.[address] [place] [address] [phone] Reflex add FT3? Y Reflex add FT4? Y Comprehensive Metabolic 02/04/2018 [facility] Glucose 81 mg/dL N 74-106 Panel [address] [place] [address] [phone] BUN 14 mg/dL N 7-18 Creatinine 1.1 [...] K/uL N 3.1-10.[address] [place] [address] [phone] Red Blood Count 4.38 M/uL N 3.90-5.40 [...] 40.4-72.8 Lymph % 32.7 % N 20.0-42.0 Stone % 11.4 % N 4.3-13.2 Eo% 1.7 % N 0.0-6.6 Bas% 0.2 % N 0.0-1.1 Neut# 2.95 K/uL N 1.8-7.0 Lymph # 1.78 K/uL N 1.0-4.0 Stone # 0.62 K/uL N 0.3-0.9 Eos # 0.09 K/uL N 0.0-0.5 Baso # 0.01 K/uL N 0.0-0.1 Laboratory test 05/24/2017 [facility] Surgical Interface SEE RESULT 23 finding [phone] Order BELOW Klebsiella 05/21/2017 [facility] Nitrofurantoin 256 R Pneumoniae [address] [place], [place] [address] [phone] Trimethoprim/Sulfamethoxazole 40 S Ampicillin >=32 R Cefazolin <=4 S Ampicillin/Sulbactam 16 I Ciprofloxacin 1 I Piperacillin/Tazobactam 8 S Ceftazidime <=1 S Ceftriaxone <=1 S Cefepime <=1 S Levofloxacin 4 I Imipenem <=0.25 S Gentamicin <=1 S Tobramycin <=1 S Urine Culture 05/21/2017 [facility] Urine Culture KLEBSIELLA Abnormal [address] PNEUM <[place] [address] NOTE> [phone] Quantity > 100,000 CFU/mL N 25 Urine Culture URETHRAL LA NENA Quantity > 100,000 CFU/mL N 26 Basic Metabolic Panel 05/14/2017 [facility] [address] Glucose 87 mg/dL N 74- 268 44 4560 [place], [place] [id number] [phone] BUN 13 mg/dL N 7-18 Creatinine 1.0 mg/dL N 0.6-1.3 Glom Filtration Rate, Estimate 58 mL/min >60 If >60 mL/min >60 28 BUN/Creat 13.0 ratio Sodium 137 mmol/L N 136-145 Potassium 4.1 mmol/L N 3.5-5.1 Chloride 102 mmol/L N 98-107 Carbon Dioxide 30 mmol/L N 21-32 Anion Gap 5 mEq/L Low 8-16 Calcium 8.9 mg/dL N 8.5-10.1 Laboratory test 05/14/2017 [facility] [address] Vitamin 38.0 30.0-100.0 [address] [place] [address] D,25-Hydroxy ng/[place] [address] [phone] Liver Function 05/14/2017 [facility] [address] Total Protein 7.3 g/dL N 6.4- 8.[address] [place] [address] [phone] Albumin 3.8 g/dL N 3.4-5.0 Globulin 3.5 g/dL N 1.9-4.3 Alb/Glob 1.1 ratio Bilirubin,Total 0.4 mg/dL N 0.2-1.0 Bilirubin,Direct < 0.1 mg/dL N 0.0-0.2 Bilirubin,Indirect 0.3 mg/dL N 0.0-0.9 Sgot/Ast 25 U/L N 15-37 SGPT/Alt 37 U/L N 12-78 Alkaline Phosphatase 38 U/L Low 45-117 LDL Cholesterol Profile 05/14/2017 [facility] [address] Cholesterol 154 mg/dL <[phone] [place] [address] [phone] Triglycerides 85 mg/dL <150 31 HDL Cholesterol 73 mg/dL >40 32 LDL-Cholesterol 64 mg/dL < 100 33 Urine Culture 04/18/2017 [facility] Urine ESCHERICHIA COLI Abnormal [address] [place] [address] [phone] Quantity > 100,000 CFU/mL N 35 Urine Culture URETHRAL LA NENA Quantity 50,000 - 100,000 <SEE NOTE> N 36 Escherichia Coli 04/18/2017 [facility] Nitrofurantoin <=[address] [place] [address] [phone] Trimethoprim/Sulfamethoxazole <=20 S Ampicillin <=2 S Cefazolin [...] Negative Negative Protein, Ua Negative Negative Specific Jean, Ua 1.019 1 1.003 - 1.030 Urobilinogen, [...] WBC 8.5 10*3/uL 4.1 - 11.0 Lymphocytes % 06/25/2016 N2N/CCD Import Lymphocytes % 20 17-56 Manual Slide 06/25/2016 N2N/CCD Import Manual Slide Diff Ordered Review Review (Hematology) (Hematology) Monocytes % 06/25/2016 N2N/CCD Import Monocytes % 3 0-10 Neutrophils # 06/25/2016 N2N/CCD Import Neutrophils # 10.24 High 1.8-7.0 (Auto) (Auto) Protime-Inr 06/25/2016 N2N/CCD Import Inr 1.06 1 Protime 10.7 s 9.2 - 11.9 Ferritin 06/25/2016 N2N/CCD Import Ferritin 25 ng/mL 8 - 252 Troponin I 06/25/2016 N2N/CCD Import Troponin I <0.06 0.00 - 0.10 ng/mL B-type natriuretic 06/25/2016 N2N/CCD Import B natriuretic [...] 1.9 mg/dL 1.7 - 2.4 Comprehensive 06/25/2016 [facility] Glucose 122 mg/dL High 74-106 37 Metabolic Panel [address] [place], [place] [address] [phone] BUN 16 mg/dL N 7-18 Creatinine 1.0 [...] U/L N 45-117 Laboratory test finding 06/25/2016 [facility] CK 68 U/L N 26-[address] [place], [place] [address] [phone] Troponin-I < 0.015 ng/mL N 39 CBS W/Automated 06/25/2016 [facility] White Blood 17.2 K/uL High 3.1-10.[address] Count [place], [place] [address] [phone] Red Blood Count 4.70 M/uL N 3.90-5.40 [...] 1.8-7.0 Lymph # 5.37 K/uL N 1.8-7.0 Stone # 1.49 K/uL High 0.3-0.9 Eos # 0.10 K/uL N 0.0-0.5 Baso # 0.02 K/uL N 0.0-0.1 Slide Review 06/25/2016 [facility] Slide Review DIFF ORDERED N [address] [place], [place] [address] [phone] Differential-WBC 06/25/2016 [facility] Total Cells 100 #CELLS N Confirm [address] Counted [place], [place] [address] [phone] Band% 3 % N 0-8 Neutrophils% 70 [...] Differential Total 100 Cells Counted Cells Counted Lymphocytes # 06/25/2016 N2N/CCD Import Lymphocytes # 5.37 1.8-7.0 (Auto) (Auto) Thyroid Stim 04/21/2016 [facility] Thyroid Stim 0.59 N 0.30-4.[address] Hormone uIU/[place] [address] [phone] @[facility] Pat Id: [id number] @[facility] Req #: [id number] Is Patient Fasting? Unknown CBS W/Automated Diff 04/21/2016 [facility] White Blood 5.7 K/uL N 3.1-10.[address] [place] [address] [phone] Red Blood Count 4.36 M/uL N 3.90-5.40 [...] 40.4-72.8 Lymph % 27.6 % N 17.0-46.1 Stone % 8.6 % N 4.3-13.2 Eo% 1.1 % N 0.0-6.6 Bas% 0.2 % N 0.0-1.1 Neut# 3.56 K/uL N 1.8-7.0 Lymph # 1.57 K/uL Low 1.8-7.0 Stone # 0.49 K/uL N 0.3-0.9 Eos # 0.06 K/uL N 0.0-0.5 Baso # 0.01 K/uL N 0.0-0.1 @[facility] Pat Id: [id number] @[facility] Req #: [id number] Renal Function Panel 04/21/2016 [facility] Glucose 95 mg/dL N 74-106 [address] [place] [address] [phone] BUN 15 mg/dL N 7-18 Creatinine 1.2 [...] N 2.5-4.0 Albumin 4.1 g/dL N 3.4-5.0 @[facility] Pat Id: [id number] @[facility] Req #: [id number] Is Patient Fasting? Unknown Laboratory test 04/21/2016 [...] Total Protein 7.5 g/dL 6.4-8.2 Tests [address] [place] [address] [phone] Albumin 4.1 g/dL 3.4-5.0 Globulin 3.4 g/dL 1.9-4.3 Alb/Glob 1.2 ratio Bilirubin,Total 0.5 mg/dL 0.2-1.0 Bilirubin,Direct 0.2 mg/dL 0.0-0.2 Bilirubin,Indirect 0.3 mg/dL 0.0-0.9 Sgot/Ast 17 U/L 15-37 SGPT/Alt 30 U/L 12-78 Alkaline Phosphatase 48 U/L 45-117 LDL Cholesterol 05/13/2015 [facility] Cholesterol 167 mg/dL < 200 43 Profile [address] [place] [address] [phone] Triglycerides 95 mg/dL < 150 44 HDL Cholesterol 65 mg/dL > 40 45 LDL-Cholesterol 83 mg/dL < 100 46 CBC W/Automated Diff 05/13/2015 [facility] White Blood 6.5 K/uL 3.1-10.[address] [place] [address] [phone] Red Blood Count 4.30 M/uL 3.90-5.40 Hemoglobin [...] % 40.4-72.8 Lymph % 34.3 % 17.0-46.1 Stone % 9.6 % 4.3-13.2 Eo% 0.9 % 0.0-6.6 Bas% 0.2 % 0.0-1.1 Neut# 3.55 K/uL 1.0-7.0 Lymph # 2.21 K/uL 1.8-7.0 Stone # 0.62 K/uL 0.3-0.9 Eos # 0.06 K/uL 0.0-0.5 Baso # 0.01 K/uL 0.0-0.1 Renal Function Panel 05/13/2015 [facility] Glucose 92 mg/dL 74-106 [address] [place] [address] [phone] BUN 15 mg/dL 7-18 Creatinine 0.8 mg/dL 0.6-1.3 Glom Filtration Rate, Estimate >60 mL/min >60 If >60 mL/min >60 47 BUN/Creat 18.7 ratio Sodium 136 mmol/L 136-145 Potassium 4.1 mmol/L 3.5-5.1 Chloride 99 mmol/L 98-107 Carbon Dioxide 29 mmol/L 21-32 Anion Gap 8 mEq/L 8-16 Calcium 9.6 mg/dL 8.5-10.1 Phosphorous 3.3 mg/dL 2.5-4.0 Albumin 4.1 g/dL 3.4-5.0 Laboratory test 04/21/2015 [facility] Urine Culture SEE RESULT 48 finding [phone] BELOW Laboratory test 04/10/2014 N2N/[facility] Import Hemocult [...] 30.8-34.3 Mean Platelet Volume 12.2 fL 8.9-12.4 Stone # 0.56 K/uL 0.3-0.9 Stone % 9.1 % 4.3-13.2 Neut# 3.00 K/uL [...] Count 6.9 10^3/uL 4.8-10.8 Lipid Profile 04/25/2013 N2N/[employer] Import Cholesterol 179 mg/dL Less than (Trig/Chol/HDL) 200 Cholesterol/HDL Ratio 2.9 Average 1-4.44 HDL Cholesterol 61 mg/dL High 40-60 56 LDL Cholesterol 88.2 Less Than 100 57 Triglycerides 149 mg/dL 40-200 Liver Function Panel 04/25/2013 [employer] Import Albumin 4.0 g/dL 3.2-5.2 Albumin/Globulin Ratio 1.6 1-3 Alkaline Phosphatase 40 U/L 30-110 Alt 21 U/L 14-54 Ast 25 U/L 12-42 Direct Bilirubin 0.1 mg/dL 0.1-0.5 Globulin 2.5 g/dL 2-4 Indirect Bilirubin 0.7 mg/dL 0.3-1.0 Total Bilirubin 0.8 mg/dL 0.4-1.5 Total Protein 6.5 g/dL 6.2-8.1 Vitamin D, 25 04/25/2013 [employer] Import 25-Hydroxy Vitamin D 44 ng/mL 58 Hydroxy Total 25-Hydroxy Vitamin D2 <4.0 ng/mL 25-Hydroxy Vitamin D3 44 ng/mL Lipid Profile 05/31/2012 [employer] Import Cholesterol 181 mg/dL Less Than 59 (Trig/Chol/HDL) 200 Cholesterol/HDL Ratio 2.74 AVERAGE 1-4.44 High Density Lipoprotein 66 mg/dL High 40-60 60 Low Density Lipoprotein 89 mg/dL Less Than 100 61 Triglyceride 132 mg/dL 40-200 Basic Metabolic Panel 05/31/2012 [employer] Import Anion Gap 9.0 mmol/L 2- 11 [...] D deficiency has been defined by the [place] [employer] and an Endocrine Society practice guideline as a level of serum 25-OH vitamin D less than 20 ng/mL (1,2). The Endocrine Society went on to further define vitamin D insufficiency as a level between 21 and 29 ng/mL (2). 1. IOM ([place] [employer]). 2010. Dietary reference intakes for calcium and D. [place]: The National Academies Press. 2. Radha MF, Deedee BEY, [place] RODRIGUEZ, et al. Evaluation, treatment, and prevention of vitamin D deficiency: an Endocrine Society clinical practice guideline. JCEM. 2010; 96(7):1911-30. Performed at: RN - [facility] [address] [id number] Sales Representative Grocer[employer]: Aixa Hodge MD, Phone: [phone] Note: Persistent reduction for 3 months [...] 23 SEE RESULT BELOW Name: ROMELIA MAGDALENO : [address]: Rosanna Rico DO Acct: [id number] Unit: [id number] AGE: 71 Location: ENDO Re05/24/17 SEX: F Status: DEP REF SPEC: [id number] LUIS ALBERTO: 05/24/17-[address] [facility] [address]: Rosanna Rico DO REQ: [id number] RECD: 05/24/172360 STATUS: INNA MOBLEY DR: Breanne Rhoades PA [...] performed at Main Lab DEPARTMENT OF PATHOLOGY, [address] [place] [address] Surjit Quigley M.D. Director [facility] # [id number] RUN DATE: 05/25/17 [facility] LAB LIVE PAGE 2 Patient: ROMELIA MAGDALENO Nico [id number] (Continued) GROSS DESCRIPTION (Continued) GROSS DESCRIPTION (Continued) 3. The specimen is received in formalin labeled, Biopsy Left Colon, and consists of a 0.8 x 0.6 x 0.2 cm aggregate of petit-pink irregular soft tissue fragments which is submitted entirely in one cassette. Signed (signature on file) Caroline Luna MD 1515 END OF REPORT * ML=Testing performed at Main Lab DEPARTMENT OF PATHOLOGY, [address] [place] [address] Surjit Quigley M.D. Director [facility] # [id number] 24 KLEBSIELLA PNEUMONIAE 25 > 100,000 CFU/mL 26 > 100,000 CFU/mL 27 E78.5 E55.9 I10 28 Note: Persistent reduction for 3 months or more in an eGFR <60 mL/min/1.73 m2 defines CKD. Patients with eGFR values >/=60 mL/min/1.73 m2 may also have CKD if evidence of persistent proteinuria is present. The original MDRD equation for estimated GFR is not valid for patients less than 18 years of age. Additional information may be found at www.kdoqi.org. 29 Vitamin D deficiency has been defined by the [place] [employer] and an Endocrine Society practice guideline as a level of serum 25-OH vitamin D less than 20 ng/mL (1,2). The Endocrine Society went on to further define vitamin D insufficiency as a level between 21 and 29 ng/mL (2). 1. IOM ([place] [employer]). 2010. Dietary reference intakes for calcium and D. [place]: The National Academies Press. 2. Radha MF, Deedee [place], [place] RODRIGUEZ, et al. Evaluation, treatment, and prevention of vitamin D deficiency: an Endocrine Society clinical practice guideline. JCEM. 2010; 96(7):1911-30. Performed at: RN - [facility] [address] [id number] Sales Representative Groceries: Aixa Hodge MD, Phone: [phone] Reference Guidelines*: Desirable: ........... < 200 [...] called to: [] - 06/25/16 at 0046 06/25/166: BAS% previously reported as: 0.1 % Amended [...] 48 SEE RESULT BELOW Name: ROMELIA MAGDALENO : [address]: Lj Cantu MD Acct: [id number] Unit: [id number] AGE: 69 Location: [facility] Re04/21/15 SEX: F Status: REG REF SPEC: [id number] LUIS ALBERTO: 04/21/15-[address] [facility] [address]: Lj Cantu MD REQ: [id number] RECD: 04/21/153470 STATUS: COY MOBLEY DR: Breanne MCCURDY _ SOURCE: URINE SPDES: ORDERED: Urine Culture Procedure Result Verified Site Urine Culture Final 04/23/15- 0912 ML Organism 1 ESCHERICHIA COLI [place] Count >100,000 (Many) CFU/ML 1. ESCHERICHIA COLI [...] antibiotic reporting. * ML - MAIN LAB ([facility]) . END OF REPORT * ML=Testing performed at Main Lab DEPARTMENT OF PATHOLOGY, [address] [place] [id number] Surjit Quigley M.D. Director [facility] # [id number] 49 COLONY COUNT ! 20,000-30,000 CFU/ml Organism [...] 0.06 ng/mL Not supportive of diagnosis of DE 0.06 - 0.50 ng/mL Indeterminate: suggest serial studies if clinically indicated. Greater than 0.5 ng/mL Consistent with diagnosis of DE 53 Because ethnic data is not always [...] Assayed by Chemiluminescence Microparticle Immunoassay on the [employer] Access[employer]. The values obtained with different assay [...] normal population are 25-80 Test Performed by: [address] [address] Shipper/Receiver: Fernando Cardoso III, M.D. 59 CHOLESTEROL INTERPRETATION: [...] has been shown to interfere with the [place] method for measuring total bilirubin. Samples from patients who have taken Naproxen have shown spurious elevation in total bilirubin levels. 70 Please note updated reference range, effective 03/24/10 71 -- REFERENCE VALUE -- 25-HYDROXY D TOTAL (D2+D3) Optimum levels in the normal population are 25-80 Test Performed by: [place] [address] Shipper/Receiver: Fernando Cardoso III, M.D. 72 Test Performed by: [facility] Dpt of Lab Med and Pathology [address] [place] [address] Shipper/Receiver: Fernando Cardoso III, M.D. 73 -- REFERENCE VALUE -- 25-HYDROXY D TOTAL (D2+D3) Optimum levels in the normal population are 25-80 Test Performed by: [facility] Dpt of Lab Med and Pathology [address] [place] [address] Shipper/Receiver: Fernando Cardoso III, M.D. Procedures Date Code Description Status 02/11/2019 49584 EKG-Tracing And Report Completed 05/14/2018 97625 EKG-Tracing And Report Completed 04/26/2018 62718042 Mammogram Completed 02/13/2018 51341 Radiology, Knee 3 Views Completed 02/13/2018 30585 Radiology, Knee 3 Views Completed 02/13/201891957 Asp./Injection major joint Completed 02/04/2018 89820 [employer] Heart Rhythm Completed Derived Data 02/04/2018 42450 EKG-Tracing And Report Completed 05/23/2017 24413 EKG-Tracing And Report Completed 05/04/2017 00262188 Colonoscopy Completed 03/27/201783543 Injection:Tendon Sheath,Lig. Cyst Completed 02/13/2017 51902 [employer] Heart Rhythm Completed Derived Data 02/13/2017 18030 [employer] Heart Rhythm Completed Derived Data 07/31/2016 78516 [employer] Heart Rhythm Completed Derived Data 07/06/2016 20546 EKG-Tracing And Report Completed 07/03/2016 53284 Event Monitor Inter/Review Only Completed 06/05/2016 16977124 Mammogram Completed 05/05/2016 65810 EKG-Tracing And Report Completed 05/01/2016 55683 Event Monitor Inter/Review Only Completed 06/02/2015 56378591 Mammogram Completed 05/26/2015 03615 Stress Test Interpre And Report Only Completed 05/26/2015 56629 Stress Test Physician Super Only Completed 05/26/2015 53854 Stress Test Physician Super Only Completed 05/20/2015 11660 EKG-Tracing And Report Completed 05/13/2015 04078 Holter Monitor 24HR Inter/Report Completed 02/23/2015 12946 Injection:Tendon Sheath,Lig. Cyst Completed 02/23/2015 80148 Radiology, Hand: Minimum Three Views Completed 02/23/2015 92196 Radiology, Hand: Minimum Three Views Completed 12/25/2013 64713 Colonoscopy Completed 05/29/2013 00730 Holter Monitor 24HR Inter/Report Completed 05/29/2013 90031 EKG-Tracing And Report Completed 03/29/2010 58272 Asp/Injection small joint/bursa (ie-fingers,toes) Completed 09/26/2005 46398 Asp/Injection small joint/bursa (ie-fingers,toes) Completed 03/16/2003 61770 Destruct-Skin Tags/Lesions-Local Anesthesia - First Completed Lesion 01/01/2001 64778 I & D Of Abscess/Simple Or Single Completed 08/30/1999 07056 EKG-Tracing And Report Completed 07/20/1999 56374 Cholecystectomy W. Cholaniography Completed 02/05/1998 78589 Hysterectomy Vaginal, For Uterus <250 Grams Completed 01/26/1998 04639 Incision Thrombosed Hemorrhoid External Completed 07/16/1996 51751 Endometrial Biopsy Completed 05/25/1993 75818 Biopsy Of Cervix Completed Encounters Type Date Location Provider Dx Diagnosis Office Visit 02/11/2019 Cardiology Office Ajit Pedroza MD I48.0 Paroxysmal atrial 9:15a fibrillation Z79.01 penitentiary (current) use of anticoagulants Z95.818 Presence of other cardiac implants and grafts Office Visit 05/14/2018 11:45a Cardiology Office Ajit Pedroza I48.0 Paroxysmal atrial MD fibrillation 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 I44.7 Left bundle-branch block, unspecified Z95.9 Presence of cardiac and vascular implant and graft, unsp Office Visit 04/22/2018 10:15a [facility] [place], K30 Functional Office Breanne, [facility] dyspepsia R55 Syncope and collapse I48.0 Paroxysmal atrial fibrillation Z95.818 Presence of other cardiac implants and grafts I87.2 Venous insufficiency (chronic) (peripheral) Z12.31 Encntr screen mammogram for malignant neoplasm of breast Office Visit 03/14/2018 1:00p Orthopaedic Office David M76.51 Patellar Tamia Borja tendinitis, right knee Office Visit 02/21/2018 2:15p Orthopaedic Office Bria, M25.561 Pain in right Dorothy S., knee RPA M17.11 Unilateral primary osteoarthritis, right knee M25.461 Effusion, right knee Office Visit 02/13/2018 1:15p Orthopaedic Office Dorothy Fraser M25.561 Pain in S., RPAC right knee M17.11 Unilateral primary osteoarthritis, right knee Office Visit 02/11/2018 2:30p [facility] [place] N39.0 Urinary tract Office Breanne, RPA infection, site not specified M25.561 Pain in right knee Office Visit 02/04/2018 9:15a Cardiology Office Ajit Pedroza, I48.0 Paroxysmal atrial MD fibrillation Office Visit 01/22/2018 9:45a [facility] [place] I48.0 Paroxysmal atrial Office Breanne, fibrillation [facility] K12.1 Other forms of stomatitis Office Visit 01/15/2018 9:45a [facility] [place] J06.9 Acute upper Office [facility] infection, unspecified Office Visit 05/23/2017 9:45a [...] Care Breanne Rhoades, B35.1 Tinea unguium Office [facility] K60.2 Anal fissure, unspecified Office Visit 02/13/2017 [...] hypertension Office Visit 07/03/2016 11:15a [facility] [place], I48.0 [facility] fibrillation I47.9 Paroxysmal tachycardia, unspecified Office Visit [...] hypertension Office Visit 04/21/2016 9:00a [facility] [place], I10 Essential ( primary) [facility] hypertension I48.0 Paroxysmal atrial fibrillation Office Visit 06/14/2015 10:15a [facility] [place], I49.1 Atrial [facility] depolar[facility] F41.9 Anxiety disorder, unspecified I10 Essential (primary) hypertension Z23 Encounter for immunization Office Visit 05/20/2015 10:15a [facility] [place], R42 Dizziness and [facility] giddiness I49.9 Cardiac arrhythmia, unspecified Office Visit 05/13/2015 10:45a [facility] [place], I10 Essential ( primary) [facility] hypertension E78.2 Mixed hyperlipidemia R42 Dizziness and giddiness Office Visit 02/23/2015 10:45a Orthopaedic Office Dorothy Fraser 727.03 Trigger Finger S., [facility] Acquired 719.44 Pain Joint Hand Plan of Treatment Future Appointment(s):04/22/2019 10:30 am - Ajit Pedroza MD at Cardiology [id number]/11/2019 - Ajit Pedroza MDI48.0 Paroxysmal atrial fibrillationComments:S /p Afib cryo ablation. Doing well now. Will be followed with Dr Ji in May. [place]. 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 She was placed on a small dose Lasix due to intermittent edema. She is pending labs in a week or two. Dose to be adjusted renally depending on results. Has appt with PCP on the . Currently has been in sinus so low risk for CVA even if somewhat ttzzanvcpuxiinG71.818 Presence of other cardiac implants and graftsComments:No issues with device. Transmissions set to Dr Ji's office. Copies of reports we received showed no significant Afib o other dysrhythmiasAllNew Medication:Integra F 125-1 mg - one dailyFollow up:3 months
[2019-03-09 15:46] VITALS: BP 143/62
--- NOTE | 2019-03-09 15:51 | UC ---
Respiratory Complaint HPI - HPI Summary HPI Summary: 73 yo female presents with cough and sinus pain/pressure/congestion for the last 5 days. She has not been taking anything OTC for her symptoms. She is most concerned because her daughter was recently in town visiting and staying with them. Her daughter has since returned to [place] 2 days ago and today was in an ER there and dx'd with pneumonia. Pt is concerned she may have pna. Denies fever , chills, sore throat, SOB, chest pain. - History of Current Complaint Chief Complaint: UCRespiratory Stated Complaint: COUGH Time Seen by Provider: 03/09/19 15:50 Hx Obtained From: Patient Onset/Duration: Gradual Onset Severity Currently: None Pain Intensity: 0 Pain Scale Used: 0-10 Numeric Character: Cough: Nonproductive - Allergies/Home Medications Allergies/Adverse Reactions: Allergies Allergy/AdvReac Type Severity Reaction Status Date / Time cephalexin Allergy GI Upset Verified 03/09/19 15:49 ezetimibe Allergy Diarrhea Verified 03/09/19 15:49 fosinopril Allergy Coughing Verified 03/09/19 15:49 hydromorphone Allergy Altered Verified 03/09/19 15:49 Mental Status nitroglycerin Allergy See Comment Verified 03/09/19 15:49 rofecoxib Allergy Unknown Verified 03/09/19 15:49 Reaction Details Home Medications: Home Medications Amlodipine Besylate [Norvasc] 2.5 mg PO DAILY WITH MEAL 03/09/19 [History Confirmed 03/09/19] Apixaban* [Eliquis*] 2.5 mg PO BID 03/09/19 [History Confirmed 03/09/19] Iron Fum,Ps Cmp/Vit C/Niacin [Integra] 1 cap PO DAILY WITH MEAL 03/09/19 [ History Confirmed 03/09/19] Spironolactone TAB* [Aldactone TAB*] 25 mg PO DAILY 03/09/19 [History Confirmed 03/09/19] hydrOXYzine HCL TAB* [Atarax 25 MG TAB*] 25 mg PO QID PRN 03/09/19 [History Confirmed 03/09/19] PMH/Surg Hx/FS Hx/Imm Hx - Additional Past Medical History Additional PMH: Cardiac implant Endocrine History: Dyslipidemia Cardiovascular History: Hypertension GI/ History: Gastroesophageal Reflux Psychological History: Anxiety, Depression - Surgical History Surgical History: Yes Surgery Procedure, Year, and Place: tonsilectomy, hysterectomy, tubal - Family History Known Family History: Positive: Cardiac Disease, Hypertension - Social History Lives: With Family Alcohol Use: Occasionally Substance Use Type: None Smoking Status (MU): Former Smoker - Immunization History Most Recent Influenza Vaccination: 2011 Most Recent Tetanus Shot: 2011 Review of Systems All Other Systems Reviewed And Are Negative: Yes Constitutional: Positive: Negative Skin: Positive: Negative Eyes: Positive: Negative ENT: Positive: Nasal Discharge, Sinus Congestion, Sinus Pain/Tenderness Respiratory: Positive: Cough Cardiovascular: Positive: Negative Gastrointestinal: Positive: Negative Neurological: Positive: Negative Psychological: Positive: Negative Physical Exam - Summary Physical Exam Summary: GENERAL: NAD. WDWN. No pain distress. SKIN: No rashes, sores, lesions, or open wounds. HEENT: Head: AT/NC Eyes: EOM intact. Conjunctiva clear without inflammation or discharge. Ears: Hearing grossly normal. TMs intact, no bulging, erythema, or edema. Nose: Nasal mucosa mildly swollen and erythematous with yellow/ clear discharge. TTP maxillary and frontal sinus. Positive post nasal drip Throat: Posterior oropharynx without exudates, erythema, or tonsillar enlargement. Uvula midline. NECK: Supple. Nontender. No lymphadenopathy. CHEST: CTAB. No r/r/w. No accessory muscle use. Breathing comfortably and in no distress. CV: RRR. Without m/r/g. Pulses intact. NEURO: Alert. PSYCH: Age appropriate behavior. Triage Information Reviewed: Yes Vital Signs: Initial Vital Signs Temp 98.8 F 03/09/19 15:41 Pulse 84 03/09/19 15:41 Resp 20 03/09/19 15:41 BP 143/62 03/09/19 15:41 Pulse Ox 99 03/09/19 15:41 Vital Signs Reviewed: Yes Respiratory Course/Dx - Course Course Of Treatment: CXR: IMPRESSION: No radiographic evidence of acute cardiopulmonary disease. Suspect sinusitis. Rx for amoxicillin - Differential Dx/Diagnosis Provider Diagnosis: Sinusitis Discharge - Sign-Out/Discharge Documenting (check all that apply): Patient Departure All imaging exams completed and their final reports reviewed: No Studies - Discharge Plan Condition: Stable Disposition: HOME Prescriptions: Amoxicillin PO (*) [Amoxicillin 875 MG (*)] 875 mg PO BID #14 tab Patient Education Materials: Sinusitis (ED) Referrals: Breanne Rhoades PA [Primary Care Provider] - Additional Instructions: If you develop a fever, shortness of breath, chest pain, new or worsening symptoms - please call your PCP or go to the ED immediately. Your blood pressure was slightly elevated at todays visit. Please see your primary provider within 4 weeks for recheck and re-evaluation. - Billing Disposition and Condition Condition: STABLE Disposition: Home
[2019-03-09] MEDS ORDERED: Amoxicillin PO (*) 500 MG CAP PO ONE (16:37)
== END 2019-03-09 16:42 | disposition home or self-care (01) ==
LOC: UCEAST 15:36
DX: J32.9 Chronic sinusitis, unspecified (principal); E78.5 Hyperlipidemia, unspecified; I10 Essential (primary) hypertension; K21.9 Gastro-esophageal reflux disease without esophagitis; F41.9 Anxiety disorder, unspecified; F32.9 Major depressive disorder, single episode, unspecified; Z87.891 Personal history of nicotine dependence
CPT/HCPCS: 71046; 99212; A9270-GY; G0463